=== PATIENT | male | born 1985 | race African-American/Black ===

== ENCOUNTER 2019-11-29 09:11 | Outpatient (REF) | payer OTHER, SELFPAY ==
[2019-11-29 10:19] LABS: Alanine Aminotransferase 24 U/L (0-40); Albumin Level 4.3 g/dL (3.5-5.0); Alkaline Phosphatase 74 U/L (39-117); Anion Gap 11 (12-20); Aspartate Amino Transferase 26 U/L (5-37); Bilirubin Total 0.5 mg/dL (0.0-1.0); Blood Urea Nitrogen 14 mg/dL (9-16); Carbon Dioxide 26 mmol/L (22-29); Chloride 105 mmol/L (96-108); Estimated Glomerular Filt Rate > 60; Glucose Random 95 mg/dL (60-115); Potassium 4.7 mmol/l (3.3-5.1); Sodium 137 mmol/L (135-145); Total Protein 7.8 g/dL (6.5-8.0)
[2019-11-29 10:20] LABS: Calcium 9.4 mg/dL (8.4-10.2); Lithium < 0.10 mmol/L (0.60-1.20)
== END 2019-11-29 09:12 | disposition home or self-care (01) ==
LOC: HO.LAB 09:11
PROVIDERS: PCP Internal Medicine; Visit Provider Psychiatry & Neurology Neurology
DX: G44.009 Cluster headache syndrome, unspecified, not intractable (principal); Z79.899 Other long term (current) drug therapy
CPT/HCPCS: 80053; 80178

== ENCOUNTER 2020-03-09 09:24 | Outpatient (REF) | payer OTHER, SELFPAY ==
--- NOTE | 2020-03-09 10:03 | XR_ITS ---
EXAMINATION: XR ANKLE, RIGHT XR ANKLE, LEFT CLINICAL INFORMATION: Right ankle radiographs dated 02/18/2017 COMPARISON: None TECHNIQUE: AP, mortise, and lateral views of the right and left ankle. FINDINGS: Right ankle: No acute fracture or dislocation. The ankle mortise is maintained. No joint space narrowing or marginal osteophytes. No osseous erosion. Tiny dorsal calcaneal enthesophytes. Left ankle: No acute fracture or dislocation. The ankle mortise is maintained. No joint space narrowing or marginal osteophytes. No osseous erosion. Small dorsal calcaneal enthesophyte. XR/XR ankle RT min 3V IMPRESSION: Right ankle: No acute osseous abnormality. Dorsal calcaneal spurs. Left ankle: No acute osseous abnormality. Dorsal calcaneal spurs.
--- NOTE | 2020-03-09 10:03 | XR_ITS ---
EXAMINATION: XR KNEE, RIGHT XR KNEE, LEFT CLINICAL INFORMATION: Pain. COMPARISON: None. TECHNIQUE: AP, tunnel, lateral, and sunrise views of the right and left knee. FINDINGS: Right knee: No acute fracture or dislocation. No joint space narrowing or marginal osteophytes. No osseous erosion. No abnormal soft tissue calcification. No significant joint effusion. Left knee: No acute fracture or dislocation. No joint space narrowing or marginal osteophytes. No osseous erosion. Corticated ossification at the tibial plateau within the distal patellar tendon measuring 2.8 cm, consistent with a chronic avulsive injury (chronic [place]-Schlatter's disease). No significant joint effusion. XR/XR knee LT 4V IMPRESSION: Right knee: Unremarkable examination. Left knee: No acute osseous abnormality. Corticated ossification within the distal patellar tendon, consistent with a chronic avulsive injury (chronic [place]-Schlatter's disease).
--- NOTE | 2020-03-09 10:03 | XR_ITS ---
EXAMINATION: XR KNEE, RIGHT XR KNEE, LEFT CLINICAL INFORMATION: Pain. COMPARISON: None. TECHNIQUE: AP, tunnel, lateral, and sunrise views of the right and left knee. FINDINGS: Right knee: No acute fracture or dislocation. No joint space narrowing or marginal osteophytes. No osseous erosion. No abnormal soft tissue calcification. No significant joint effusion. Left knee: No acute fracture or dislocation. No joint space narrowing or marginal osteophytes. No osseous erosion. Corticated ossification at the tibial plateau within the distal patellar tendon measuring 2.8 cm, consistent with a chronic avulsive injury (chronic [place]-Schlatter's disease). No significant joint effusion. XR/XR knee RT 4V IMPRESSION: Right knee: Unremarkable examination. Left knee: No acute osseous abnormality. Corticated ossification within the distal patellar tendon, consistent with a chronic avulsive injury (chronic [place]-Schlatter's disease).
--- NOTE | 2020-03-09 10:03 | XR_ITS ---
EXAMINATION: XR ANKLE, RIGHT XR ANKLE, LEFT CLINICAL INFORMATION: Right ankle radiographs dated 02/18/2017 COMPARISON: None TECHNIQUE: AP, mortise, and lateral views of the right and left ankle. FINDINGS: Right ankle: No acute fracture or dislocation. The ankle mortise is maintained. No joint space narrowing or marginal osteophytes. No osseous erosion. Tiny dorsal calcaneal enthesophytes. Left ankle: No acute fracture or dislocation. The ankle mortise is maintained. No joint space narrowing or marginal osteophytes. No osseous erosion. Small dorsal calcaneal enthesophyte. XR/XR ankle LT min 3V IMPRESSION: Right ankle: No acute osseous abnormality. Dorsal calcaneal spurs. Left ankle: No acute osseous abnormality. Dorsal calcaneal spurs.
[2020-03-09 10:16] LABS: MANUAL DIFF FLAG NO
[2020-03-09 10:24] LABS: Basophils Percent Auto 0.4 % (0-2); Eosinophils Absolute Auto 0.2 X10*3/uL (0.0-0.4); Eosinophils Percent Auto 2.5 % (0-4); Hematocrit 41.5 % (42-52); Hemoglobin 13.2 g/dl (14.0-18.0); Imm Gran Abs Auto 0.01 X10*3/uL (0.00-0.03); Imm Gran Pct Auto 0.1 % (0.0-0.4); Lymphocytes Absolute Auto 3.4 X10*3/uL (1.2-4.9); Lymphocytes Percent Auto 43.9 % (20-40); Mean Corpuscular HGB Conc 31.8 g/dl (31.0-36.0); Mean Corpuscular Hemoglobin 27.4 pg (27.0-33.0); Mean Corpuscular Volume 86.1 fL (80-98); Mean Platelet Volume 9.7 fL (9.4-12.4); Monocytes Absolute Auto 0.5 X10*3/uL (0.1-1.2); Monocytes Percent Auto 5.9 % (2-11); Neutrophils Absolute Auto 3.7 X10*3/uL (2.0-8.3); Neutrophils Percent Auto 47.2 % (45-73); Platelet Count 332 X10*3/uL (160-400); Red Blood Count 4.82 X10*6/uL (4.60-5.80); Red Cell Distribution Width 12.4 % (11.0-16.0); White Blood Count 7.7 X10*3/uL (4.8-10.8)
[2020-03-09 10:51] LABS: C Reactive Protein 0.31 mg/dL (< or = 0.50); Rheumatoid Factor < 15.0 IU/mL (<15.0)
[2020-03-10 13:02] LABS: Lyme Abs Screen <0.90 index
[2020-03-11 20:52] LABS: Anti Nuclear Antibody Screen NEGATIVE (NEGATIVE)
== END 2020-03-09 09:25 | disposition home or self-care (01) ==
LOC: HO.LAB 09:24
PROVIDERS: Visit Provider Internal Medicine
DX: M25.561 Pain in right knee (principal); M25.562 Pain in left knee; M25.571 Pain in right ankle and joints of right foot; M25.572 Pain in left ankle and joints of left foot
CPT/HCPCS: 36415; 73564; 73610; 85025; 86038; 86039; 86140; 86431; 86618

== ENCOUNTER 2020-03-31 10:37 | Outpatient (REF) | payer OTHER, SELFPAY ==
[2020-04-03 12:26] LABS: Absolute CD3 Count 2053 cells/uL (840-3060); Absolute CD4 Count 728 cells/uL (490-1740); Absolute CD8 Count 1351 cells/uL (180-1170); Absolute Lymphocytes 2723 cells/uL (850-3900); CD4 CD8 Ratio 0.54 (0.86-5.00); Percent CD3 Cells 75 % (57-85); Percent CD4 Cells 27 % (30-61); Percent CD8 Cells 50 % (12-42)
[2020-04-04 11:56] LABS: HIV RNA PCR Qn Copies <20 NOT DETECTED copies/mL (NOT DETECTED); HIV RNA PCR Qn Log Copies <1.30 NOT DETECTED (NOT DETECTED)
== END 2020-03-31 10:38 | disposition home or self-care (01) ==
LOC: HO.LAB 10:37
PROVIDERS: Visit Provider Internal Medicine
DX: B20 Human immunodeficiency virus [HIV] disease (principal)
CPT/HCPCS: 36415; 86359; 86360; 87536

== ENCOUNTER 2020-07-31 14:24 | Outpatient (REF) | payer OTHER, SELFPAY ==
[2020-07-31 15:24] LABS: Blood Urea Nitrogen 14 mg/dL (9-16); Estimated Glomerular Filt Rate 52
== END 2020-07-31 14:25 | disposition home or self-care (01) ==
LOC: HO.LAB 14:24
PROVIDERS: Visit Provider Psychiatry & Neurology Neurology
DX: G93.40 Encephalopathy, unspecified (principal); G44.009 Cluster headache syndrome, unspecified, not intractable
CPT/HCPCS: 36415; 82565; 84520

== ENCOUNTER 2020-08-30 15:15 | Outpatient (REF) | payer OTHER, SELFPAY ==
--- NOTE | ~2020-08-30 | MR_ITS ---
EXAMINATION: MR BRAIN WITHOUT AND WITH CONTRAST CLINICAL INFORMATION: Encephalopathy and chronic daily headaches. COMPARISON: MRI scan of the brain 11/13/2012. TECHNIQUE: Multiplanar, multisequence MRI of the brain was obtained before and after the intravenous administration of 10 mL Gadavist. FINDINGS: No diffusion abnormalities are identified to suggest an acute or subacute infarct. No mass effect or midline shift is seen. The ventricles are normal in size. There are a few small foci of increased T2/FLAIR signal in the periventricular white matter which are nonspecific. No extra-axial fluid collections are seen. The brainstem appears normal. On postcontrast imaging, there is no abnormal parenchymal or leptomeningeal enhancement. No pathologic magnetic susceptibility artifact is identified on the gradient refocused acquisition. The cerebellar tonsils extend 3 mm below the level of foramen magnum, within normal limits for patient's age and unchanged compared to prior imaging. The contour of the tonsils is normal. Marrow signal is normal. There is a partially empty sella, which is unchanged. The major intracranial flow-voids at the level of the upper [place] of [place] are preserved. The dural venous sinus flow-voids are maintained. The mastoid air cells are well-aerated. There is moderate mucoperiosteal thickening in the bilateral maxillary sinuses on the current study. The nasal septum is deviated to the left and there is a left-sided bony nasal septal spur. There is minimal left ethmoid sinus opacification. MR/MR head/brain wo/w con IMPRESSION: 1. There are no acute bleeds or territorial infarcts. There are no masses or areas of abnormal enhancement. 2. There is mucoperiosteal thickening in the bilateral maxillary and left ethmoid sinuses.
== END 2020-08-30 15:16 | disposition home or self-care (01) ==
LOC: HO.MRI 15:15
PROVIDERS: Visit Provider Psychiatry & Neurology Neurology
DX: G93.40 Encephalopathy, unspecified (principal); R51.9 Headache, unspecified
CPT/HCPCS: 70553; A9585

== ENCOUNTER 2023-05-01 11:27 | Outpatient (REF) | payer OTHER, SELFPAY ==
[2023-05-01 16:02] LABS: MANUAL DIFF FLAG NO
[2023-05-01 16:14] LABS: Basophils Percent Auto 0.3 % (0-2); Eosinophils Absolute Auto 0.4 X10*3/uL (0.0-0.4); Eosinophils Percent Auto 4.6 % (0-4); Hemoglobin 12.8 g/dl (14.0-18.0); Imm Gran Abs Auto 0.02 X10*3/uL (0.00-0.03); Imm Gran Pct Auto 0.2 % (0.0-0.4); Lymphocytes Absolute Auto 3.7 X10*3/uL (1.2-4.9); Lymphocytes Percent Auto 40.4 % (20-40); Mean Corpuscular Hemoglobin 27.6 pg (27.0-33.0); Mean Corpuscular Volume 86.4 fL (80.0-98.0); Mean Platelet Volume 9.6 fL (9.4-12.4); Monocytes Absolute Auto 0.5 X10*3/uL (0.1-1.2); Monocytes Percent Auto 5.1 % (2-11); Neutrophils Absolute Auto 4.5 x10*3/uL (2.0-8.3); Neutrophils Percent Auto 49.4 % (45-73); Platelet Count 285 X10*3/uL (160-400); Red Blood Count 4.63 X10*6/uL (4.60-5.80); Red Cell Distribution Width 13.2 % (11.0-16.0); White Blood Count 9.2 X10*3/uL (4.8-10.8)
[2023-05-01 16:24] LABS: Alanine Aminotransferase 38 U/L (0-40); Alkaline Phosphatase 62 U/L (39-117); Anion Gap 14 (12-20); Aspartate Amino Transferase 28 U/L (5-37); Bilirubin Total 0.2 mg/dL (0.0-1.0); Blood Urea Nitrogen 21 mg/dL (9-16); Calcium 8.9 mg/dL (8.4-10.2); Carbon Dioxide 26 mmol/L (22-29); Chloride 104 mmol/L (96-108); Estimated Glomerular Filt Rate > 60; Glucose Random 95 mg/dL (60-115); Sodium 140 mmol/L (135-145)
[2023-05-02 13:23] LABS: Absolute CD3 Count 3044 cells/uL (840-3060); Absolute CD4 Count 1044 cells/uL (490-1740); Absolute CD8 Count 1945 cells/uL (180-1170); Absolute Lymphocytes 3977 cells/uL (850-3900); CD4 CD8 Ratio 0.54 (0.86-5.00); Percent CD3 Cells 77 % (57-85); Percent CD4 Cells 26 % (30-61); Percent CD8 Cells 49 % (12-42)
[2023-05-03 20:44] LABS: HIV RNA PCR Qn Copies 238 copies/mL (NOT DETECTED); HIV RNA PCR Qn Log Copies 2.38 (NOT DETECTED)
== END 2023-05-01 11:28 | disposition home or self-care (01) ==
LOC: HO.HHCL 11:27
PROVIDERS: Visit Provider Internal Medicine
DX: B20 Human immunodeficiency virus [HIV] disease (principal)
CPT/HCPCS: 36415; 80053; 85025; 86359; 86360; 87536

== ENCOUNTER 2023-06-25 08:57 | Outpatient (REF) | payer OTHER, SELFPAY ==
[2023-06-25 09:13] LABS: MANUAL DIFF FLAG NO
[2023-06-25 10:01] LABS: Basophils Percent Auto 0.6 % (0-2); Eosinophils Absolute Auto 0.4 X10*3/uL (0.0-0.4); Eosinophils Percent Auto 5.9 % (0-4); Hematocrit 40.1 % (42.0-52.0); Hemoglobin 13.1 g/dl (14.0-18.0); Imm Gran Abs Auto 0.02 X10*3/uL (0.00-0.03); Imm Gran Pct Auto 0.3 % (0.0-0.4); Lymphocytes Absolute Auto 2.7 X10*3/uL (1.2-4.9); Lymphocytes Percent Auto 39.2 % (20-40); Mean Corpuscular HGB Conc 32.7 g/dl (31.0-36.0); Mean Corpuscular Hemoglobin 28.2 pg (27.0-33.0); Mean Corpuscular Volume 86.4 fL (80.0-98.0); Mean Platelet Volume 9.7 fL (9.4-12.4); Monocytes Absolute Auto 0.5 X10*3/uL (0.1-1.2); Monocytes Percent Auto 6.5 % (2-11); Neutrophils Absolute Auto 3.3 x10*3/uL (2.0-8.3); Neutrophils Percent Auto 47.5 % (45-73); Platelet Count 309 X10*3/uL (160-400); Red Blood Count 4.64 X10*6/uL (4.60-5.80); Red Cell Distribution Width 12.9 % (11.0-16.0); White Blood Count 6.9 X10*3/uL (4.8-10.8)
[2023-06-25 10:31] LABS: Lithium < 0.10 mmol/L (0.60-1.20)
[2023-06-25 10:40] LABS: Alanine Aminotransferase 23 U/L (0-40); Albumin Level 4.3 g/dL (3.5-5.0); Alkaline Phosphatase 60 U/L (39-117); Anion Gap 13 (12-20); Aspartate Amino Transferase 23 U/L (5-37); Bilirubin Direct < 0.2 mg/dL (0.0-0.5); Bilirubin Total 0.2 mg/dL (0.0-1.0); Blood Urea Nitrogen 16 mg/dL (9-16); Calcium 9.6 mg/dL (8.4-10.2); Carbon Dioxide 25 mmol/L (22-29); Chloride 105 mmol/L (96-108); Estimated Glomerular Filt Rate 59; Glucose Random 80 mg/dL (60-115); Potassium 4.4 mmol/L (3.3-5.1); Sodium 139 mmol/L (135-145); Total Protein 8.3 g/dL (6.5-8.0)
[2023-06-25 10:53] LABS: HBS Num1 > 1000.00 mIU/mL (0-7.99); HBc Num1 4.04 S/CO (0.00-0.79); HBsAGNum1 0.26 S/CO (0.00-0.99); Hepatitis B Surface Antigen Negative (Negative); ~Hepatitis B Surface Antibody REACTIVE (Nonreactive); ~Hepatitis C Antibody Nonreactive (Nonreactive)
[2023-06-25 11:01] LABS: Thyroid Stimulating Hormone 0.61 uIU/mL (0.32-4.0)
[2023-06-25 11:25] LABS: Hepatitis A Antibody IgM 0.11 Index (0-0.79); ~Hepatitis A Antibody IgM Nonreactive (Nonreactive)
[2023-06-25 12:07] LABS: HBc Num2 3.93 S/CO; Hepatitis B Core Antibody Reactive (Nonreactive)
[2023-06-25 12:08] LABS: HIV AB/AG Reactive (Nonreactive)
[2023-06-26 12:09] LABS: Hepatitis B Core Antibody IgM NON-REACTIVE (NON-REACTIVE)
[2023-06-30 12:37] LABS: HIV 1 Antibody POSITIVE (Abnormal)
[2023-06-30 12:38] LABS: HIV 2 Antibody NEGATIVE
== END 2023-06-25 08:58 | disposition home or self-care (01) ==
LOC: HO.LAB 08:57
PROVIDERS: PCP Internal Medicine; Visit Provider Physician Assistant Medical
DX: F10.21 Alcohol dependence, in remission (principal); Z79.899 Other long term (current) drug therapy
CPT/HCPCS: 36415; 80053; 80178; 82248; 84443; 85025; 86701; 86702; 86704; 86705; 86706; 86709; 86803; 87340; 87389

== ENCOUNTER 2023-07-06 15:25 | Emergency (ER) | payer OTHER, SELFPAY ==
--- NOTE | 2023-07-06 15:35 | ED.GENADULT ---
HPI - General Adult General Chief complaint: Medical Clearance Stated complaint: medical clearance for work History of Present Illness HPI narrative: left without completing treatment Related Data Allergies Allergy/AdvReac Type Severity Reaction Status Date / Time shellfish derived Allergy Severe ANAPHYLAXIS Unverified 07/06/23 15:40 [SHELLFISH DERIVED] oxycodone [From PERCOCET] AdvReac Intermediate ITCHINESS Unverified 07/06/23 15:40 PMFSH Social History Social History Advance Directives: No Advance Directives Information Provided: No Physical Exam ED Vital Signs: BMI result Body Mass Index 31.3 Course Course Course Narrative: This is an RME performed by Corey Wakefield CNP: Additional HPI, ROS, PE not included below will be deferred to primary provider. Patient is a 38-year-old male who presents to the emergency department, Reports he was recently in a residential [facility] program at [address] [place] [address] in [place] [address] , but left on voluntarily, he states he was not well, his [place] levels were unstable, and he needs medical clearance to get back there. Denies drug or alcohol usage. Denies SI/HI. Reports increased depression. Denies physical complaints Plan: Labs, care team evaluation Discharge Plan Discharge Clinical Impression: Encounter for medical clearance for patient hold Patient Disposition: Left W/O Completing Treatment Discharge Date/Time: 07/06/23 20:07
[2023-07-06 15:36] VITALS: BP 141/86; PULSE 99; RESP 18; TEMP 36.7; O2SAT 99; BMI 31.3
--- NOTE | 2023-07-06 16:16 | MHC.EDTECH ---
No answer for lab work at 1616
--- OUTSIDE RECORDS SUMMARY | 2023-07-06 16:31 | XMS_ITS | Continuity of Care Document ---
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 k/mm3???Neut % - 63.4 %???Lymph % - 26.4 %???Dixon % - 6.6 %???Eos % - 3.1 %???Baso % - 0.3 %???Imm Gran- 0.2 %???Abs. Imm Gran - 0.0 k/mm3 Cocaine Urine Screen (01/03/2023) ???Cocaine Metabolite Screen, Urine - POSITIVE Comprehensive Metabolic Panel (01/02/2023) ???Sodium - 134 mmol/L???Potassium - 4.1 mmol/L???Chloride - 101 mmol/L???Bicarbonate Level - 26 mmol/L???Anion Gap - 7???Glucose Level - 83 mg/dL???BUN - 9 mg/dL???Creatinine-Blood - 1.0 mg/dL???Estimated GFR Creatinine - 103 ML/MIN/1.73 M2???Calcium - 9.1 mg/dL???Protein, Total - 7.3 Gm/dL???Album in - 3.9 Gm/dL???AG Ratio - 1.1???Alkaline Phosphatase - 73 units/L???AST (SGOT) - 16 units/L???ALT(SGPT) - 13 units/L???Bilirubin, Total - 0.5 mg/dL COVID-19, RSV, and Flu A/B, Rapid PCR (01/02/2023) ???Influenza A PCR - NEGATIVE???Influenza B PCR - NEGATIVE???RSV PCR - NEGATIVE???COVID-19 PCR Specimen Source - NASAL???COVID-19 PCR Result - NEGATIVE FOLIC ACID (01/02/2023) ???Folic Acid Level - 14.7 ng/mL FREE T4 (01/02/2023) ???Free T4 - 1.21 ng/dL [place] Level (01/04/2023) ???[place] Level - 0.4 mmol/L Mg Level (01/04/2023) ???Magnesium - 1.7 mg/dL Opiate Screen Urine (01/03/2023) ???Opiate Screen, Urine - NONE DETECTED SALICYLATE (01/02/2023) ? ?Salicylate Level - <0.3 mg/dL TSH with T4 Reflex (Adults Only) (01/02/2023) ???TSH - 0.27 uIU/mL VITAMIN B12 (01/02/2023) ???Vitamin B12 Level - 585 pg/mL Immunizations This Visit Not Given Vaccine Commentsinfluenza virus vaccine, inactivated Patient Refuses Allergies (NKA means No Known Allergies) shellfish??(throat swells up swelling eyes face) Problems Active Problems??(7) Asthma?? Cocaine abuse?? Difficulty controlling anger?? HIV disease?? 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 Opioid abuse?? Pilonidal disease?? Education Materials Below is the list of Educational Leaflet Providered with your Discharge Instructions. Valuables and Belongings I fully understand and agree that [facility] accepts no responsibility for all my personal property including clothing, toilet articles, radios, jewelry, dentures, hearing aids, rings, money, or any other property that is in my possession or is brought to me after admission. I understand certain valuables may be placed in a hospital safe for a short period of time. I understand that the hospital is not liable for loss or damage due to accident, fire, or other natural occurrence while said property is in the safe. I accept full responsibility for any personal property that I keep with me, and will not hold the hospital responsible in case of loss or disappearance. I acknowledge that i have been encouraged to send valuables and belongings home. ?? Date for Pt to Sign Valuables/Belongings: 01/03/23 11:43:00 ?? Other Discharge Information ? Pulmonary Rehab Status?? Pulmonary Rehab Discharge Status?? Respiratory Rate: 18 br/min ? Common Emergency Awareness Tips IS IT A STROKE? Act FAST and Check for these signs: FACE Does the face look uneven? ARM Does one arm drift down? SPEECH Does their speech sound strange? TIME Call at any sign of stroke ?? Heart Attack Signs Chest discomfort: Most heart attacks involve discomfort in the center of the chest and lasts more than a few minutes, or goes away and comes back. It can feel like uncomfortable pressure, squeezing, fullness or pain. Discomfort in upper body: Symptoms can include pain or discomfort in one or both arms, back, neck, jaw or stomach. Shortness of breath: With or without discomfort. Other signs: Breaking out in a cold sweat, nausea, or lightheaded. Remember, MINUTES DO MATTER. If you experience any of these heart attack warning signs, call to get immediate medical attention! ?? Smoking can increase your chances of developing chronic health problems and can cause harmful effects to other family members in your house. If you smoke, you are strongly encouraged to quit. Please call [facility] [employer] Link at [phone] or [phone] ([phone]) or log in to [email or web address] for referrals to smoking cessation programs. ?? 659 Suicide & Crisis Lifeline is available 09/09 if you or someone you know needs to find a reason to keep living. By calling 086 you'll be connected to a skilled, trained counselor at a crisis center in your area. INPATIENT DISCHARGE INSTRUCTIONS SIGNATURE ONEL SLADE Location:[facility] Registration Date and Time:01/02/2023 10:38 EST Primary Care Physician: Pravin SAHU, Juan Ortega, Attending Physician: Moises Corley DO, ONEL GARCIA, have received the above patient education materials/instructions and have verbalized understanding. If ambulance or transport services are being used I further acknowledge being given a choice of service. ?? If you need to contact me, please call me at this number: . Patient/Financial Accounting Analyst Name: Patient/Financial Accounting Analyst Signature: Relationship to Patient: Witness Name/Signature: Date: Patient Care team information Care Team Personnel Name: Pravin SAHU, Juan Ortega Position: [facility] Outreach Member Role: PCP Address: Address: [address] [place] [address] Name: Kilo Cm RN Position: [facility] RN Member Role: Primary Care Nurse Name: Duy VILLA Attending Position: [facility] ED Medicine Name: Radha Orozco RN Position: [facility] ED RN W/OE and Tasks Member Role: Patient Care Provider Name: Jaye Oquendo RN Position: [facility] ED RN W/OE and Tasks Member Role: Patient Care Provider Name: Ena Santa Position: [facility] ED TA [facility] Member Role: Patient Care Provider Name: Tatyana Yadav Position: [facility] ED OA Charge Member Role: ED Rental Counter Clerk Care Team Related Persons Name: JAME GILBERT Address: home [address] [address] Name: AMCKENZIE MENDIOLA Address: home [address] [place] [address]
--- OUTSIDE RECORDS SUMMARY | 2023-07-06 16:31 | XMS_ITS | Continuity of Care Document ---
Author Organization [facility] Address [address] [place] [address]- Care Team Providers Care Physician Obstetrician Name Role Phone Pravin SAHU, Juan Ortega Primary Care Physi [employer] [facility] 10/02/19 [facility] [address] [place] [address]- [facility] Encounter Diagnosis Vomiting(Discharge Diagnosis) - 09/25/19 Attending Physician: Lynn SAHU, Titus Garcia Referring Physician: Pravin SAHU, Juan Ortega Allergies, Adverse Reactions, Alerts Substance Reaction Severity Status shellfish throat swells up swelling eyes face Active Immunizations Given and Recorded Vaccine Date Status Refusal Reason influ virus vac, H1N1, live(oldterm) 1 12/02/08 [...] diphtheria/tetanus/pertussis, acel(DTaP) 87 Given Poliovirus Vaccine, Inactivated 5/24/93 Given Poliovirus Vaccine, Inactivated 02/14/89 Given Poliovirus Vaccine, Inactivated 87 Given Poliovirus Vaccine, Inactivated 87 Given Haemophilus B Conjugate Vac (oldterm) 02/14/89 Giv en 1Admin Note: VIS GIVEN - 11/18/08 [facility] - [facility] Medications albuterol CFC free 90 mcg/inh inhalation aerosol 1, puffs, Inhalation, Once, PRN, # 18 Gm, Refills 0, Tot. Refills 0, Soft Stop, 03/18/19 19:32:00 EST, Aerosol, Print Requisition, 188, cm, 03/18/19 17:09:00 EST, Height, 114, kg, 03/18/19 17:09:00 EST, Dry Weight Start Date: 03/18/19 Status: Ordered Biktarvy oral tablet TK 1 T PO QD Start Date: 03/18/19 Status: Ordered clonazePAM 0.5 mg oral tablet TK 1 T PO QHS Start Date: 03/18/19 Status: Ordered Colace sodium 100 mg oral capsule 100 mg, 1, capsule, By Mouth, 2 times a day, PRN, # 60 capsule, Refills 3, Tot. Refills 3, Maintenance, for constipation, 01/20/19 9:53:00 EST, Route to Pharmacy Electronically, [id number], [facility] #[id number], 184, c... Start Date: 01/20/19 Status: Ordered Flovent HFA 220 mcg/inh inhalation aerosol with adapter 1 puffs, Inhalation, 2 times a day, 5 Refills, Maintenance, 30, days, Aerosol Start Date: 08/23/10 Stop Date: 02/19/11 Status: Ordered lithium 300 mg oral tablet, extended release 1 tablet = 300 mg, By Mouth, 3 times a day, 0 Refills, Maintenance, 04/24/15 12:07:59 EST Start Date: 04/24/15 Status: Ordered mirtazapine 15 mg oral tablet TK 1 T PO QHS Start Date: 03/18/19 Status: Ordered ProAir HFA 90 mcg/inh inhalation aerosol with adapter 2, puffs, Inhalation, Every 4 hours, PRN, # 8.5 Gm, Refills 0, Tot. Refills 0, Maintenance, 01/20/19 10:15:00 EST, Aerosol, Route to Pharmacy Electronically, [id number], [facility] #[id number], 184, cm, 01/20/19 8:19:37... Start Date: 01/20/19 Status: Ordered Singulair 10 mg oral tablet 1 tablet = 10 mg, By Mouth, Daily, # 30 tablet, 5 Refills, Maintenance Start Date: 08/23/10 Stop Date: 02/19/11 Status: Ordered Sumatriptan = 100 mg, By Mouth, PRN as needed for migraine headache, 0 Refills, Maintenance, 01/11/19 20:17:34 EST Start Date: 01/11/19 Status: Ordered Valium 5 mg oral tablet 5 mg, 1, tablet, By Mouth, 3 times a day, PRN, # 40 tablet, Refills 0, Tot. Refills 0, Maintenance,Anal Spasm, 01/20/19 9:53:00 EST, Route to Pharmacy Electronically, [id number], [facility] #[id number], 184, cm, ... 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
--- OUTSIDE RECORDS SUMMARY | 2023-07-06 16:32 | XMS_ITS | Continuity of Care Document ---
Author Organization [facility] Address [address] [address]- Care Team Providers Care Vp Of Digital Marketing Name Role Phone Pravin SAHU, Juan Ortega Primary Care Physi gianni [facility]): 03/11/19 - 05/12/19 [facility] [address] [place] [address] Attending Physician: Eddie Pak MD Admitting Physician: Eddie Pak MD Referring Physician: Jason Berg MD Allergies, Adverse Reactions, Alerts Substance Reaction [...] 01/20/19 9:53:00 EST, Route to Pharmacy Electronically, [id number], [facility] #[id number], 184, c... Start Date: 01/20/19 Status: Ordered [...] 10:15:00 EST, Aerosol, Route to Pharmacy Electronically, [id number], [facility] #[id number], 184, cm, 01/20/19 8:19:37... Start Date: 01/20/19 [...] 01/20/19 9:53:00 EST, Route to Pharmacy Electronically, [id number], [facility] #[id number], 184, cm, ... 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
--- OUTSIDE RECORDS SUMMARY | 2023-07-06 16:32 | XMS_ITS | Continuity of Care Document ---
Author Organization [facility] ter Address [address] [place] [address]- Care Team Providers Care Counter Person Name Role Phone Pravin SAHU, Juan Ortega Primary Care Physi gianni [facility] - 09/07/[address] [address]- Discharge Disposition: A-D/C Home Attending Physician: Jason Arauz MD Admitting Physician: Jason Arauz MD Referring Physician: Not on Staff, Referring MD Allergies, Adverse Reactions, Alerts Substance Reaction Severity Status shellfish throat swells up swelling eyes face Active Immunizations Given and Recorded Vaccine Date Status Refusal Reason tetanus/diphtheria/pertussis, acel(Tdap) 08/31/21 Given influ virus vac, H1N1, live(oldterm) 1 12/02/08 [...] en 1Admin Note: VIS GIVEN - 11/18/08 [facility] Medications albuterol CFC free 90 mcg/inh inhalation aerosol 1, puffs, Inhalation, Once, PRN, # 18 Gm, Refills 0, Tot. Refills 0, Soft Stop, 03/18/19 19:32:00 EST, Aerosol, Print Requisition, 188, cm, 03/18/19 17:09:00 EST, Height, 114, kg, 03/18/19 17:09:00 EST, Dry Weight Start Date: 03/18/19 Status: Ordered ARIPiprazole 5 mg oral tablet 5 mg, 1, tablet, By Mouth, Daily, # 30 tablet, Refills 0, Tot. Refills 0, Maintenance, 05/17/20 13:49:00 EDT, Route to Pharmacy Electronically, [facility] #[id number], Partial fill upon patient request if the prescription is for a schedule II opi... Start Date: 05/17/20 Stop Date: 06/16/20 Status: Ordered Biktarvy oral tablet 1 tablet, By Mouth, Daily Start Date: 03/18/19 Status: Ordered mirtazapine 15 mg oral tablet 1 tablet = 15 mg, By Mouth, Daily at bedtime, # 30 tablet, 0 Refills, Maintenance, 05/15/20 14:01:00 EDT, Tablet, [facility] #[id number], Partial fill upon patient request if the prescription isfor a schedule II opioid drug., 187, cm, 05/03/20 1... 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)(Confirmed) Active Pilonidal disease(Confirmed) Active Vital Signs Most recent to oldest [Reference Range]: 1 Oxygen Saturation [94-100 %] 96 % (09/07/21 9:05 PM) Pulse Rate [55-90 bpm] 94 bpm *H* (09/07/21 9:05 PM) Blood Pressure [90-138/55-84 mm Hg] 132/ 72mm Hg (09/07/21 9:05 PM) Respiratory Rate [16-30 br/min] 16 br/mi n (09/07/21 9:05 PM) Temperature [96.8-100.4 DegF] 98.5 DegF (09/07/21 9:05 PM) Mode of Delivery (Oxygen) Room air (09/07/21 9:05 PM) Blood pressure sites Arm, right (09/07/21 9:05 PM) Temperature Route Oral (09/07/21 9:05 PM) Social History Social History Type Response Smoking Status Never smoker entered on: 03/12/17 Sex
--- OUTSIDE RECORDS SUMMARY | 2023-07-06 16:32 | XMS_ITS | Continuity of Care Document ---
Author Organization [facility] Address [address] [address]- Care Team Providers Care Customer Care Consultant Name Role Phone Pravin SAHU, Juan Ortega Primary Care Physi gianni [facility] - 04/26/19 [facility] [address] [address]- [facility] Attending Physician: Sunny De Leon Admitting Physician: Sunny De Leon Referring Physician: AdmSunny rodríguez Allergies, Adverse Reactions, Alerts Substance Reaction Severity [...] 01/20/19 9:53:00 EST, Route to Pharmacy Electronically, [id number], [facility] #[id number], 184, c... Start Date: 01/20/19 Status: Ordered [...] 10:15:00 EST, Aerosol, Route to Pharmacy Electronically, [id number], [facility] #[id number], 184, cm, 01/20/19 8:19:37... Start Date: 01/20/19 [...] 01/20/19 9:53:00 EST, Route to Pharmacy Electronically, [id number], [facility] #[id number], 184, cm, ... Start Date: 01/20/19 Status: [...]
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
--- OUTSIDE RECORDS SUMMARY | 2023-07-06 16:32 | XMS_ITS | Continuity of Care Document ---
Author Organization [facility] ter Address [address] [place] [address]- Care Team Providers Care Windrower Operator Name Role Phone Pravin SAHU, Juan Ortega Primary Care Physi gianni [facility]s): 04/15/21 - 04/15/[address] [address]- Encounter Diagnosis Acute gastritis(Final) - 04/15/21 Acute nausea with nonbilious vomiting(Final) - 04/15/21 Discharge Disposition: A-D/C Home Attending Physician: Henry Zhao MD Admitting Physician: Henry Zhao MD Referring Physician: Not on Staff, Referring [...] en 1Admin Note: VIS GIVEN - 11/18/08 [facility] Medications albuterol CFC free 90 mcg/inh inhalation [...] 05/17/20 13:49:00 EDT, Route to Pharmacy Electronically, [facility] #[id number], Partial fill upon patient request if the prescription is for a schedule II opi... Start Date: 05/17/20 Stop Date: 06/16/20 Status: Ordered Biktarvy oral tablet 1 tablet, By Mouth, Daily Start Date: 03/18/19 Status: Ordered mirtazapine 15 mg oral tablet 1 tablet = 15 mg, By Mouth, Daily at bedtime, # 30 tablet, 0 Refills, Maintenance, 05/15/20 14:01:00 EDT, Tablet, [facility] #[id number], Partial fill upon patient request if the prescription isfor a schedule II opioid drug., 187, cm, 05/03/20 1... Start Date: 05/15/20 Stop Date: 06/14/20 Status: Ordered ondansetron 4 mg oral tablet, disintegrating 1 tablet = 4 mg, By Mouth, Every 8 hours, PRN Nausea & Vomiting, for 3 days, # 10 tablet, 0 Refills, Acute 04/18/21 20:29:00 EST, 04/15/21 20:29:00 EST, Tablet, [facility] #[id number], Partial fill upon patient request if the prescription is for... Start Date: 04/15/21 Stop Date: 04/18/21 Status: Ordered Singulair 10 mg oral tablet [...] Exam Date Time Procedure Performing Provider Status 04/15/21 6:44 PM Chest 2 Views Frontal and Lat Suzy Irving; Auth (Verified) Notes: (Chest 2 Views Frontal and Lat) Reason For Exam: Abdominal Pain RESULT: Chest 2 Views Frontal and Lat Chest 2 Views Frontal and Lat Hx of Present Illness: The patient complains of 5 days of vomiting and abdominal pain. COMPARISON: 02/16/2021. FINDINGS: LINES AND TUBES: None. LUNGS AND PLEURA: Clear lungs. Normal pulmonary vascularity. No pleural effusion. No pneumothorax. HEART, MEDIASTINUM AND ALESIA: Heart is normal in size. Normal upper mediastinal and hilar contour. BONES AND SOFT TISSUES: No acute abnormality. IMPRESSION: No acute abnormality. WSN: [id number] Ordering Physician: Henry Zhao Dictated By: Anshul Carballo MD Dictated Date/Time: 04/15/21 6:55 pm Reviewed By: Anshul Carballo MD Signed By: Anshul Carballo MD Signed Date/Time: 04/15/21 6:55 pm Transcribed By: ALEXANDER Transcribed Date/Time: 04/15/21 6:54 pm Vital Signs Most recent to oldest [Reference Range]: 1 2 3 Oxygen Saturation [94-100 %] 100 % (04/15/21 5:21 PM) 100 % (04/15/21 5:06 PM) 100 % (04/15/21 3:16 PM) Pulse Rate [55-90 bpm] 88 bpm (04/15/21 5:21 PM) 92 bpm *H* (04/15/21 5:06 PM) 73 bpm (04/15/21 3:16 PM) Blood Pressure [90-138/55-84 mm Hg] 156/98mm Hg *H* (04/15/21 5:21 PM) 156/98mm Hg *H* (04/15/21 5:06 PM) 139/88mm Hg *H* (04/15/21 3:16 PM) Respiratory Rate [16-30 br/min] 18 br/min (04/15/21 5:21 PM) 17 br/min (04/15/21 5:06 PM) 16 br/min (04/15/21 11:21 AM) Temperature [96.8-100.4 DegF] 98.1 DegF (04/15/21 5:21 PM) 97.6 DegF (04/15/21 5:06 PM) 99 DegF (04/15/21 3:16 PM) Mode of Delivery (Oxygen) Room air (04/15/21 5:21 PM) Room air (04/15/21 5:06 PM) Room air (04/15/21 3:16 PM) Blood pressure sites Arm, left (04/15/21 5:21 PM) Arm, right (04/15/21 5:06 PM) Arm, right (04/15/21 3:16 PM) Temperature Route Oral (04/15/21 5:21 PM) Oral (04/15/21 5:06 PM) Oral (04/15/21 3:16 PM) Social History Social History Type Response Smoking Status Never smoker entered on: 03/12/17 Sex
--- OUTSIDE RECORDS SUMMARY | 2023-07-06 16:32 | XMS_ITS | Continuity of Care Document ---
Author [facility] Address [address] [place] [address] Dri ve [address] [place] [address]- Care Team Providers Care Shopping Inspector Name Role Phone Pravin SAHU, Juan Ortega Primary Care Physi [facility] 02[facility]19 - 03/04/[address] [place] [address]- [facility] Encounter Diagnosis Pilonidal disease(Discharge Diagnosis) - 02/25/19 HIV disease(Discharge Diagnosis) - 02/25/19 Attending Physician: Ara SAHU, Tolu Apodaca Referring Physician: Pravin SAHU, Juan Ortega Allergies, [...] en 1Admin Note: VIS GIVEN - 11/18/08 [facility] Medications Colace sodium 100 mg oral capsule 200 mg, 2, capsule, By Mouth, Daily, # 60 capsule, Refills 6, Tot. Refills 6, Maintenance, :52:48 EDT, Route to Pharmacy Electronically, [id number], [facility]/pharmacy #5 Start Date: 09/23/17 Stop Date: 04/21/18 Status: Ordered Colace sodium 100 mg oral capsule 100 mg, 1, capsule, By Mouth, 2 times a day, PRN, # 60 capsule, Refills 3, Tot. Refills 3, Maintenance, for constipation, 01/20/19 9:53:00 EST, Route to Pharmacy Electronically, [id number], [facility] #[id number], 184, c... Start Date: 01/20/19 Status: Ordered [...] 12:07:59 EST Start Date: 04/24/15 Status: Ordered ProAir HFA 90 mcg/inh inhalation aerosol with adapter 2, puffs, Inhalation, Every 4 hours, PRN, # 8.5 Gm, Refills 0, Tot. Refills 0, Maintenance, 01/20/19 10:15:00 EST, Aerosol, Route to Pharmacy Electronically, [id number], [facility] #[id number], 184, cm, 01/20/19 8:19:37... Start Date: 01/20/19 [...] 01/20/19 9:53:00 EST, Route to Pharmacy Electronically, [id number], [facility] #[id number], 184, cm, ... Start Date: 01/20/19 Status: [...] Diagnosis Diagnosis Type Effective Dates Health Status Cl inical Service Informant Pilonidal disease Discharge Diagnosis 02/25/19 HIV disease Discharge Diagnosis 02/25/19 Vital Signs Most recent to oldest [Reference Range]: 1 Height 184 cm (02/25/19 1:44 PM) Weight 127.8 kg (02/25/19 1:44 PM) Body Mass Index [18.5-24.99] 37.75 *>HHI* (02/25/19 1:44 PM) Temperature [96.8-100.4 DegF] 99.0 DegF (02/25/19 1:44 PM) Temperature Route Temporal (02/25/19 1:44 PM) Social History Social History Type Response Smoking Status Never smoker entered on: 1/24/18 Sex
--- OUTSIDE RECORDS SUMMARY | 2023-07-06 16:32 | XMS_ITS | Continuity of Care Document ---
Author Organization [facility] Address [address] [place] [address] ve [address] [place] [address]- Care Team Providers Care Electro Mechanical Engineer Name Role Phone Pravin SAHU, Juan Ortega Primary Care Physi gianni [facility]): 03/26/19 - 04/05/[address] [place] [address]- [facility] Attending Physician: Sunny De Leon Admitting Physician: [...] Note: VIS GIVEN - 11/18/08 [facility] Medications albuterol CFC free 90 mcg/inh inhalation [...] 01/20/19 9:53:00 EST, Route to Pharmacy Electronically, [id number], [facility] #[id number], 184, c... Start Date: 01/20/19 Status: Ordered [...] 10:15:00 EST, Aerosol, Route to Pharmacy Electronically, [id number], [facility] #[id number], 184, cm, 01/20/19 8:19:37... Start Date: 01/20/19 [...] 01/20/19 9:53:00 EST, Route to Pharmacy Electronically, [id number], [facility] #[id number], 184, cm, ... Start Date: 01/20/19 Status: [...]
--- OUTSIDE RECORDS SUMMARY | 2023-07-06 16:32 | XMS_ITS | Continuity of Care Document ---
Author Organization [facility] ter Address [address] [place] [address]- Care Team Providers Care Operations Asst Name Role Phone Pravin SAHU, Juan Ortega Primary Care Physi gianni [facility]counter [facility] Date(s): 07/27/22 - 07/27/[address] [address]- Encounter Diagnosis Encounter for psychiatric assessment(Final) - 07/27/22 Discharge Disposition: A-D/C AMA Attending Physician: Pooja Murdock MD Admitting Physician: Pooja Murdock MD Referring Physician: Not on Staff, Referring [...] 05/17/20 13:49:00 EDT, Route to Pharmacy Electronically, [facility] #[id number], Partial fill upon patient request if the prescription is for a schedule II opi... Start Date: 05/17/20 Stop Date: 06/16/20 Status: Ordered Biktarvy oral tablet 1 tablet, By Mouth, Daily Start Date: 03/18/19 Status: Ordered mirtazapine 15 mg oral tablet 1 tablet = 15 mg, By Mouth, Daily at bedtime, # 30 tablet, 0 Refills, Maintenance, 05/15/20 14:01:00 EDT, Tablet, [facility] #[id number], Partial fill upon patient request if the [...] to oldest [Reference Range]: 1 2 Height 189 cm (07/27/22 7:28 AM) 189 cm (07/27/22 7:15 AM) Weight 98 kg (07/27/22 7:28 AM) 98 kg (07/27/22 7:15 AM) Oxygen Saturation [94-100 %] 100 % (07/27/22 7:15 AM) 100 % (07/27/22 7:13 AM) Pulse Rate [55-90 bpm] 92 bpm *H* (07/27/22 7:15 AM) 98 bpm *H* (07/27/22 7:13 AM) Body Mass Index [18.5-24.99 kg/m2] 27.43 kg/m2 *H* (07/27/22 7:15 AM) Blood Pressure [90-138/55-84 mm Hg] 155/ 94mm Hg *H* (07/27/22 7:15 AM) Respiratory Rate [16-30 br/min] 18 br/mi n (07/27/22 7:15 AM) Temperature [96.8-100.4 DegF] 97.7 DegF (07/27/22 7:15 AM) Mode of Delivery (Oxygen) Room air (07/27/22 7:15 AM) Room air (07/27/22 7:13 AM) Blood pressure sites Arm, right (07/27/22 7:15 AM) Temperature Route Oral (07/27/22 7:15 AM) Dry Weight 98 kg (07/27/22 7:28 AM) 98 kg (07/27/22 7:15 AM) Weight Obtained Via Standing scale (07/27/22 7:15 AM) Dry Weight Obtained Via Standing scale (07/27/22 7:15 AM) Social History Social History Type Response Smoking Status Never smoker entered on: 03/12/17 Sex Patient Care team information Care Team Personnel Name: Juan Costello MD Position: [facility] Outreach Member Role: PCP Address: Address: [address] [place] [address]- [place] Name: Ismael KAUR, Syeda Position: [facility] ED RN W/OE and Tasks Member Role: Patient Care Provider Name: Pooja Murdock MD Position: [facility] Resident Member Role: Admitting Physician Address: Address: [address] [place] [address]- Name: Mar Naqvi Position: [facility] ED TA [facility] Name: Shobha Fuentes MD Position: [facility] Resident Member Role: ED Resident Address: Address: [address] [place] [address]- Care Team Related Persons Name: JAME GILBERT Address: home [address] [facility] [address] [place] [address] Name: MACKENZIE MENDIOLA Address: home [address] [place] [address]
--- OUTSIDE RECORDS SUMMARY | 2023-07-06 16:32 | XMS_ITS | Continuity of Care Document ---
Author Organization [facility] Address [address] [address]- Care Team Providers Care Micro Computer Data Processor Name Role Phone Pravin SAHU, Juan Ortega Primary Care Physi gianni [facility]counter [facility]): 04/13/19 - 05/16/19 [facility] [address] [place] [address]- [facility] Attending Physician: Flavio Collins MD Admitting Physician: Flavio Collins MD Referring Physician: Juan Costello MD Allergies, Adverse Reactions, Alerts Substance Reaction [...] 01/20/19 9:53:00 EST, Route to Pharmacy Electronically, [id number], [facility] #[id number], 184, c... Start Date: 01/20/19 Status: Ordered [...] 10:15:00 EST, Aerosol, Route to Pharmacy Electronically, [id number], [facility] #[id number], 184, cm, 01/20/19 8:19:37... Start Date: 01/20/19 [...] 01/20/19 9:53:00 EST, Route to Pharmacy Electronically, [id number], [facility] #[id number], 184, cm, ... Start Date: 01/20/19 Status: [...]
--- OUTSIDE RECORDS SUMMARY | 2023-07-06 16:32 | XMS_ITS | Continuity of Care Document ---
Author Organization [facility] Address [address] [place] [address]- Care Team Providers Care Meat Loiner Name Role Phone Pravin SAHU, Juan Ortega Primary Care Physi gianni [facility]s): 09/25/19 - 10/25/19 [facility] [address] [place] [address]- [facility] Attending Physician: Sunny De Leon Admitting Physician: Sunny De Leon Referring Physician: Sunny De Leon Allergies, Adverse Reactions, Alerts Substance Reaction Severity [...] 01/20/19 9:53:00 EST, Route to Pharmacy Electronically, [id number], [facility][id number], 184, c... Start Date: 01/20/19 Status: Ordered [...] 10:15:00 EST, Aerosol, Route to Pharmacy Electronically, [id number], [facility] #[id number], 184, cm, 01/20/19 8:19:37... Start Date: 01/20/19 [...] 01/20/19 9:53:00 EST, Route to Pharmacy Electronically, [id number], [facility] #[id number], 184, cm, ... Start Date: 01/20/19 Status: [...]
--- OUTSIDE RECORDS SUMMARY | 2023-07-06 16:32 | XMS_ITS | Continuity of Care Document ---
Author Organization [facility] Address [address] [place] [address] [address] [place] [address]- Care Team Providers Care Compressor Operator Name Role Phone Pravin SAHU, Juan Ortega Primary Care Physi [facility]counter [facility](s): 02/25/19 - 04/25/[address] [place] [address]- [facility] Attending Physician: Raeann NAVARRETE, Luz Elena Wu Referring Physician: Juan Costello MD Allergies, Adverse [...] 01/20/19 9:53:00 EST, Route to Pharmacy Electronically, [id number], [facility] #[id number], 184, c... Start Date: 01/20/19 Status: Ordered [...] 10:15:00 EST, Aerosol, Route to Pharmacy Electronically, [id number], [facility] #[id number], 184, cm, 01/20/19 8:19:37... Start Date: 01/20/19 [...] 01/20/19 9:53:00 EST, Route to Pharmacy Electronically, [id number], [facility] #[id number], 184, cm, ... Start Date: 01/20/19 Status: [...]
--- OUTSIDE RECORDS SUMMARY | 2023-07-06 16:32 | XMS_ITS | Continuity of Care Document ---
Author Organization [facility] Address [address] [address]- Care Team Providers Care Apartment Rental Agent Name Role Phone Pravin SAHU, Juan Ortega Primary Care Physi gianni [facility]counter [facility](s): 01/13/19 - 04/08/19 [facility] [address] [address]- [facility] Attending Physician: Jareth SAHU, Tomy Ortega Admitting Physician: Tomy Templeton MD Referring Physician: Jason Berg MD Allergies, [...] 01/20/19 9:53:00 EST, Route to Pharmacy Electronically, [id number], [facility] #[id number], 184, c... Start Date: 01/20/19 Status: Ordered [...] 10:15:00 EST, Aerosol, Route to Pharmacy Electronically, [id number], [facility] #[id number], 184, cm, 01/20/19 8:19:37... Start Date: 01/20/19 [...] 01/20/19 9:53:00 EST, Route to Pharmacy Electronically, [id number], [facility] #[id number], 184, cm, ... Start Date: 01/20/19 Status: [...]
--- OUTSIDE RECORDS SUMMARY | 2023-07-06 16:32 | XMS_ITS | Continuity of Care Document ---
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 available 09/09 if you or someone you know needs to find a reason to keep living. By calling 587 you'll be connected to a skilled, trained counselor at a crisis center in your area. INPATIENT DISCHARGE INSTRUCTIONS SIGNATURE EUSEBIO SLADE Location:[facility] Registration Date and Time:04/21/2023 20:25 EST Primary Care Physician: Pravin SAHU, Juan Ortega, Attending Physician: Prasanth Vallejo MD, I EUSEBIO GILBERT, have received the above patient education materials/instructions and have verbalized understanding. If ambulance or transport services are being used I further acknowledge being given a choice of service. ?? If you need to contact me, please call me at this number: . Patient/Cardiology Manager Name: Patient/Cardiology Manager Signature: Relationship to Patient: Witness Name/Signature: Date: Patient Care team information Care Team Personnel Name: Kirstie Dee LPN Position: [facility] RN Member Role: Primary Care Nurse Name: Juan Costello MD Position: [facility] Outreach Member Role: PCP Address: Address: [address] [place] [id number] Care Team Related Persons Name: JAME GILBERT Address: home [address] [place] [address] Name: MACKENZIE MENDIOLA Address: home [address] [place] [address]
--- OUTSIDE RECORDS SUMMARY | 2023-07-06 16:32 | XMS_ITS | Continuity of Care Document ---
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 Phone Pravin SAHU, Juan Ortega Primary Care Physi [facility] Encounter [facility] Date(s): 03/18/19 - 03/18/[address] [address]- [facility] Encounter Diagnosis Influenza B(Final) - 03/18/19 Discharge Disposition: A-D/C Home Attending Physician: Conrad Sandoval DO Admitting Physician: Conrad Sandoval DO Referring Physician: Not on Staff, Referring MD [...] Note: [facility] G[facility] - [facility]18/08 [facility] Medications albuterol CFC free 90 mcg/inh inhalation [...] 01/20/19 9:53:00 EST, Route to Pharmacy Electronically, [id number], [facility] #[id number], 184, c... Start Date: 01/20/19 Status: Ordered [...] PO QHS Start Date: 03/18/19 Status: Ordered oseltamivir 75 mg oral capsule 1 capsule = 75 mg, By Mouth, 2 times a day, for 5 days, # 10 capsule, 0 Refills, Acute 03/23/19 19:30:00 EST, 03/18/19 19:30:00 EST, Capsule, 188, cm, 03/18/19 17:09:00 EST, Height, 114, kg, 03/18/2016:09:00 EST, Dry Weight Start Date: 03/18/19 Stop Date: 03/23/19 Status: Ordered ProAir HFA 90 mcg/inh inhalation aerosol with adapter 2, puffs, Inhalation, Every 4 hours, PRN, # 8.5 Gm, Refills 0, Tot. Refills 0, Maintenance, 01/20/19 10:15:00 EST, Aerosol, Route to Pharmacy Electronically, [id number], [facility] #[id number], 184, cm, 01/20/19 8:19:37... Start Date: 01/20/19 [...] 01/20/19 9:53:00 EST, Route to Pharmacy Electronically, [id number], [facility] #[id number], 184, cm, ... Start Date: 01/20/19 Status: [...] to oldest [Reference Range]: 1 2 Height 188 cm (03/18/19 5:09 PM) 188 cm (03/18/19 5:01 PM) Weight 114 kg (03/18/19 5:09 PM) 114 kg (03/18/19 5:01 PM) Oxygen Saturation [94-100 %] 100 % (03/18/19 7:53 PM) 100 % (03/18/19 5:01 PM) Pulse Rate [55-90 bpm] 80 bpm (03/18/19 7:53 PM) 87 bpm (03/18/19 5:01 PM) Body Mass Index [18.5-24.99] 32.25 *>HHI* (03/18/19 5:01 PM) Blood Pressure [90-138/55-84 mm Hg] 146/ 88mm Hg *H* (03/18/19 7:53 PM) 113/87mm Hg (03/18/19 5:01 PM) Respiratory Rate [16-30 br/min] 20 br/mi n (03/18/19 7:53 PM) 19 br/min (03/18/19 5:01 PM) Temperature [96.8-100.4 DegF] 98.2 DegF (03/18/19 7:53 PM) 100.2 DegF (03/18/19 5:01 PM) Mode of Delivery (Oxygen) Room air (03/18/19 7:53 PM) Room air (03/18/19 5:01 PM) Blood pressure sites Arm, right (03/18/19 7:53 PM) Arm, right (03/18/19 5:01 PM) Temperature Route Oral (03/18/19 7:53 PM) Oral (03/18/19 5:01 PM) Dry Weight 114 kg (03/18/19 5:09 PM) 114 kg (03/18/19 5:01 PM) Weight Obtained Via Patient/family state d (03/18/19 5:01 PM) Dry Weight Obtained Via Patient/family s tated (03/18/19 5:01 PM) Social History Social History Type Response Smoking Status Never smoker entered on: 03/12/17 Sex
--- OUTSIDE RECORDS SUMMARY | 2023-07-06 16:32 | XMS_ITS | Continuity of Care Document ---
Author Organization [facility] ter Address [address] [place] [id number]- Care Team Providers Care Fence Installer Helper Name Role Phone Juan Costello MD Primary Care Physi gianni [facility] Date(s): 09/03/20 - 09/04/[address] [place] [address] [address]- Discharge Disposition: A-D/C Walkout Attending Physician: Not [...] en 1Admin Note: VIS GIVEN - 11/18/08 [facility] Medications albuterol CFC free 90 mcg/inh [...] 05/17/20 13:49:00 EDT, Route to Pharmacy Electronically, [facility] #[id number], Partial fill upon patient request if the prescription is for a schedule II opi... Start Date: 05/17/20 Stop Date: 06/16/20 Status: Ordered Biktarvy oral tablet 1 tablet, By Mouth, Daily Start Date: 03/18/19 Status: Ordered mirtazapine 15 mg oral tablet 1 tablet = 15 mg, By Mouth, Daily at bedtime, # 30 tablet, 0 Refills, Maintenance, 05/15/20 14:01:00 EDT, Tablet, [facility] #[id number], Partial fill upon patient request if the [...] [Reference Range]: 1 2 Height 188 cm (09/03/20 3:06 PM) Weight 104 kg (09/03/20 3:06 PM) Oxygen Saturation [94-100 %] 100 % (09/03/20 1:57 PM) 98 % (09/03/20 1:53 PM) Pulse Rate [55-90 bpm] 72 bpm (09/03/20 1:57 PM) 81 bpm (09/03/20 1:53 PM) Blood Pressure [90-138/55-84 mm Hg] 133/ 91mm Hg (09/03/20 1:57 PM) Respiratory Rate [16-30 br/min] 18 br/mi n (09/03/20 1:57 PM) Temperature [96.8-100.4 DegF] 97.9 DegF (09/03/20 1:57 PM) Mode of Delivery (Oxygen) Room air (09/03/20 1:57 PM) Room air (09/03/20 1:53 PM) Blood pressure sites Arm, right (09/03/20 1:57 PM) Temperature Route Oral (09/03/20 1:57 PM) Dry Weight 104 kg (09/03/20 3:06 PM) Weight Obtained Via Patient/family state d (09/03/20 3:06 PM) Dry Weight Obtained Via Patient/family s tated (09/03/20 3:06 PM) Social History Social History Type Response Smoking Status Never smoker entered on: 03/12/17 Sex
--- NOTE | 2023-07-06 17:06 | MHC.EDTECH ---
no answer for lab work at 1252
== END 2023-07-06 20:07 | disposition left against medical advice (07) ==
PROVIDERS: Emergency Provider Emergency Medicine; PCP Internal Medicine
DX: Z02.79 Encounter for issue of other medical certificate (principal); F32.A Depression, unspecified; Z53.21 Procedure and treatment not carried out due to patient leaving prior to being seen by health care provider
CPT/HCPCS: 99281

== ENCOUNTER 2023-12-05 14:23 | Inpatient (IN) | payer OTHER, SELFPAY ==
--- NOTE | 2023-12-05 14:25 | ED_ITS ---
HPI - Psych General Chief Complaint: Psychiatric Symptoms Stated Complaint: crisis Time Seen by Provider: 12/05/23 14:59 Source: patient, RN notes reviewed and old records reviewed Mode of arrival: ambulatory History of Present Illness ED Provider: Marilynn Rankin PA-C HPI Narrative: 38-year-old male with a past medical history of TBI presenting to ED complaining of intermittent blacking out episodes x few months and myalgias/fatigue. States he wakes up in unknown places, and sometimes different states. Does not remember anything or how he got there. Reports history of substance abuse, however states he is sober, and unsure if he is using drugs. Denies SI at present, however recently suicidal. Reports noncompliance with his medications as he can not remember to take them. Related Data Home Medications ?Medication ?Instructions ?Recorded ?Confirmed No Known Home Meds 12/05/23 12/05/23 Allergies Allergy/AdvReac Type Severity Reaction Status Date / Time shellfish derived Allergy Severe ANAPHYLAXIS Verified 12/05/23 14:31 [SHELLFISH DERIVED] oxycodone [From PERCOCET] AdvReac Intermediate ITCHINESS Verified 12/05/23 14:31 Review of Systems 2 Review of Systems: Yes all other systems are reviewed and are negative Constitutional: Constitutional: Reports as per HPI [facility] Past Medical History Attestation statement: The following information was validated with the patient. Source: old records reviewed Social History Social History Alcohol intake: current Alcohol intake frequency: a few times a month Smoked in Last 30 Days: Yes Use of substances other than those prescribed or required for medical reasons: Unknown Substance Use Type Other:: pt reports he doesnt know if he uses drugs Advance Directives: No Advance Directives Information Provided: Yes Do you have a plan to hurt others: No Plan Physical Exam 2 Vital Signs: Vital Signs: Last Vital Signs Temp 98.4 F 12/05/23 14:26 Pulse 83 12/05/23 14:26 Resp 16 12/05/23 14:56 BP 138/100 H 12/05/23 14:26 Pulse Ox 99 12/05/23 14:26 O2 Del Method Room Air 12/05/23 14:26 BMI result Body Mass Index 28.2 Const: General: cooperative and no acute distress O rientation/consciousness: patient oriented x3 Limitations: no limitations HEENT: Head: Yes normal to inspection and Yes atraumatic Ears: hearing grossly normal bilaterally General nose exam: Normal external nose present Face and sinus: Yes normal facial exam Eyes: General: appearance normal, both eyes and all related structures EOM: EOMs intact bilaterally Neck: Neck: Yes normal visual inspection and Yes no meningeal signs Resp: Effort & Inspection: normal respiratory effort and no respiratory distress Auscultation: clear to auscultation bilaterally Cardio: Rate: regular rate Heart sounds: S1 normal heart sound present and S2 normal heart sound present GI: Inspection: Yes normal to inspection Palpation (GI): Soft to palpation, nontender, no guarding and not rigid Skin: Rashes: no rashes Wounds: no wounds Neuro: General: patient oriented x3, tone normal, no meningeal signs and CN's II-XI intact bilaterally Cranial nerves: Yes CN's II-XII intact bilaterally Gait exam (Neuro): Normal gait present Extrem: General: Yes normal to inspection Psych: Affect: Sad affect present Attitude: cooperative Thought content: suicidality and no homicidality Insight: Limited insight present (Psych) Course Course Course Narrative: This is a rapid medical exam performed by Alice Vaz NP: Additional HPI, ROS, PE not included below will be deferred to primary provider. Patient is a 38-year-old male with history of TBI presenting to the emergency department with complaint of blacking out, states he has been waking up in places and is unsure how he got there. Denies feeling suicidal today, but states he felt suicidal the other day due to the blackouts, was going to jump off a bridge. Stopped taking his medications months ago. Denies auditory or visual hallucinations. Reports generalized body aches, feeling exhausted. Plan: med clearance then care team eval -1613--labs reassuring. UA negative. Tox screen positive for cocaine and THC -1621--CPK mildly elevated to 491 >> will push p.o. fluids. Physician observation initiated as patient needs more time to be evaluated by CARE team -patient was evaluated by CARE team however minimally engaged. Plan for re eval tomorrow. -2100--ED care transferred to SHAYY Britton pending CARE team or eval tomorrow Medical Decision Making Medical Decision Making MDM Narrative: 38-year-old male with a past medical history of TBI presenting to ED complaining of intermittent blacking out episodes x few months and myalgias/fatigue. On exam hypertensive, NAD, nontoxic appearing, sad, denies/HI. Concern for substance abuse vs dissociation. Rule out organic causes including metabolic abnormalities and infectious etiologies. Low suspicion for ICH Plan: EKG, Labs, tox screen, CARE team consult Please refer to course for remaining clinical decision making, interpretation of labs/imaging results, and discussions with consultants and/or family members. Differential Diagnosis Differential Diagnoses: The differential diagnosis associated with the presentation includes As above Admission/Observation Consideration of admission/observation: Escalation of care including admission/observation considered Consult Healthcare Provider Management of the patient was discussed with: Behavioral Health Provider Lab Data MDM Lab Attestation statement: I reviewed the patient's lab results. 12/05/23 14:43 12/05/23 14:43 Labs: Lab Results 12/05/23 12/05/23 Range/Units 14:43 14:44 WBC 7.5 (4.8-10.8) X10*3/uL RBC 4.52 L (4.60-5.80) X10*6/uL Hgb 12.6 L (14.0-18.0) g/dl Hct 38.7 L (42.0-52.0) % MCV 85.6 (80.0-98.0) fL MCH 27.9 (27.0-33.0) pg MCHC 32.6 (31.0-36.0) g/dl RDW 12.9 (11.0-16.0) % Plt Count 263 (160-400) X10*3/uL MPV 9.2 L (9.4-12.4) fL Immature Gran % (Auto) 0.3 (0.0-0.4) % Neut % (Auto) 47.1 (45-73) % Lymph % (Auto) 38.2 (20-40) % [place] % (Auto) 4.9 (2-11) % Eos % (Auto) 9.0 H (0-4) % Baso % (Auto) 0.5 (0-2) % Lymph # (Auto) 2.9 (1.2-4.9) X10*3/uL [place] # (Auto) 0.4 (0.1-1.2) X10*3/uL Eos # (Auto) 0.7 H (0.0-0.4) X10*3/uL Baso # (Auto) 0.0 (0.0-0.2) X10*3/uL Abs Immat Gran (auto) 0.02 (0.00-0.03) X10*3/uL Absolute Neuts (auto) 3.5 (2.0-8.3) x10*3/uL Absolute Nucleated RBC 0.000 (0.0-0.012) X10*3/uL Nucleated RBC % (auto) 0.0 (0.0-0.2) /100WBC Sodium 139 (135-145) mmol/L Potassium 3.8 (3.3-5.1) mmol/L Chloride 106 (96-108) mmol/L Carbon Dioxide 28 (22-29) mmol/L Anion Gap 9 L (12-20) BUN 12 (9-16) mg/dL Creatinine 0.88 (0.5-1.4) mg/dL Estim Creat Clear Calc 146.4 Estimated GFR > 60 Random Glucose 118 H (60-115) mg/dL Calcium 9.0 D (8.4-10.2) mg/dL Magnesium 1.9 (1.6-2.6) mg/dL Total Bilirubin 0.3 (0.0-1.0) mg/dL AST 23 (5-37) U/L ALT 21 (0-40) U/L Alkaline Phosphatase 58 (39-117) U/L Total Creatine Kinase 491 H (38-174) U/L Total Protein 7.4 (6.5-8.0) g/dL Albumin 4.0 (3.5-5.0) g/dL Urine Color Yellow Urine Appearance Cloudy Urine pH 7.0 (5.0-9.0) Ur Specific [place] >= 1.030 H (1.005-1.025) Urine Protein Trace (Neg-Trace) mg/dL Urine Glucose (UA) Negative (Negative) mg/dL Urine Ketones Trace (Negative) mg/dL Urine Blood Negative (Negative) Urine Nitrite Negative (Negative) Ur Leukocyte Esterase Negative (Negative) Urine Opiates Screen Not Detected (Not Detect) Ur Buprenorphine Scrn Not Detected (Not Detect) ng/mL Ur Oxycodone Screen Not Detected (Not Detect) ng/mL Urine Methadone Screen Not Detected (Not Detect) ng/mL Urine Fentanyl Screen Not Detected (Not Detect) Ur Barbiturates Screen Not Detected (Not Detect) Ur Phencyclidine Scrn Not Detected (Not Detect) Ur Amphetamines Screen Not Detected (Not Detect) U Benzodiazepines Scrn Not Detected (Not Detect) Urine Cocaine Screen POSITIVE H (Not Detect) U Marijuana (THC) Screen POSITIVE H (Not Detect) Ethyl Alcohol < 10 mg/dL Influenza Type A (PCR) NEGATIVE (Negative) Influenza Type B (PCR) NEGATIVE (Negative) RSV RNA Qual (PCR) NEGATIVE (Negative) SARS-CoV-2 RNA (RT-PCR) NEGATIVE (Negative) Independent Interpretation I performed an independent interpretation of an: EKG Radiology Impression Discussion of test interpretation with radiology: I have reviewed the radiologist's reading. External Record Review External record reviewed: Inpatient record, Office record, Outpatient record, Prior outpatient labs, Prior outpatient radiology, Primary care record and Outside ED record Tests considered The following testing was considered but not selected: As above Social Determinants Patient?s care significantly limited by Social Determinants of Health including: Alcoholism and drug addiction in family and Problems related to primary support group Discharge Plan Discharge Clinical Impression: Memory deficit, Depression Patient Disposition: Still a Patient Prescriptions: No Action No Known Home Meds Interventions: Grand-Suicide Risk Severity Scale Last Done: 12/05/23 14:56 Print Language: Cambodian
[2023-12-05 14:26] VITALS: BP 138/100; PULSE 83; RESP 18; TEMP 36.9; O2SAT 99; BMI 28.2
--- NOTE | 2023-12-05 14:28 | ECG_ITS ---
Test Reason : BLACKING OUT Blood Pressure : / mmHG Vent. Rate : 069 BPM Atrial Rate : 069 BPM P-R Int : 156 ms QRS Dur : 094 ms QT Int : 414 ms P-R-T Axes : 067 039 052 degrees QTc Int : 443 ms Normal sinus rhythm Normal ECG When compared with ECG of 13-JAN-2017 08:56, No significant change was found Referred By: Jud Vaz Electronically Signed By:MAGALI SCOTT
--- NOTE | 2023-12-05 14:49 | PC.NURSE ---
Onel comes to the ED today reporting that recently he has been having spells of blacking out which also come around times where he feels suicidal. he reports a plan to jump of a bridge at this time. he states he saw crisis this am but is looking for inpatient help. pt reports he used to be on Abilify and [place] but has been off of the medications for about 2 months now. He denies HI/AH/VH. Is calm and cooperative, aware of plan of care for med clearance and then care team eval.
[2023-12-05 14:51] LABS: MANUAL DIFF FLAG NO
[2023-12-05 14:52] LABS: Basophils Percent Auto 0.5 % (0-2); Eosinophils Absolute Auto 0.7 X10*3/uL (0.0-0.4); Hematocrit 38.7 % (42.0-52.0); Hemoglobin 12.6 g/dl (14.0-18.0); Imm Gran Abs Auto 0.02 X10*3/uL (0.00-0.03); Imm Gran Pct Auto 0.3 % (0.0-0.4); Lymphocytes Absolute Auto 2.9 X10*3/uL (1.2-4.9); Lymphocytes Percent Auto 38.2 % (20-40); Mean Corpuscular HGB Conc 32.6 g/dl (31.0-36.0); Mean Corpuscular Hemoglobin 27.9 pg (27.0-33.0); Mean Corpuscular Volume 85.6 fL (80.0-98.0); Mean Platelet Volume 9.2 fL (9.4-12.4); Monocytes Absolute Auto 0.4 X10*3/uL (0.1-1.2); Monocytes Percent Auto 4.9 % (2-11); Neutrophils Absolute Auto 3.5 x10*3/uL (2.0-8.3); Neutrophils Percent Auto 47.1 % (45-73); Platelet Count 263 X10*3/uL (160-400); Red Blood Count 4.52 X10*6/uL (4.60-5.80); Red Cell Distribution Width 12.9 % (11.0-16.0); White Blood Count 7.5 X10*3/uL (4.8-10.8)
[2023-12-05 14:54] LABS: Appearance Urine Cloudy; Color Urine Yellow; Glucose Urine UA Negative (Negative); Leukocyte Esterase Urine Negative (Negative); Nitrite Urine Negative (Negative); Specific Gravity - Urine >= 1.030 (1.005-1.025); Urine Blood Negative (Negative); Urine Ketones Trace mg/dL (Negative); Urine Protein Trace mg/dL (Neg-Trace)
[2023-12-05 14:56] VITALS: RESP 16
[2023-12-05 15:04] LABS: Amphetamine Screen Urine Not Detected (Not Detect); Barbiturates, Urine Not Detected (Not Detect); Benzodiazepines Screen Urine Not Detected (Not Detect); Buprenorphine Scr Not Detected (Not Detect); Cannabinoid Screen Urine POSITIVE (Not Detect); Cocaine Screen Urine POSITIVE (Not Detect); Fentanyl, urine Not Detected (Not Detect); Methadone Screen, Urine Not Detected (Not Detect); Opiate Screen Urine Not Detected (Not Detect); Oxycodone Screen Urine Not Detected (Not Detect); Phencyclidine Screen Urine Not Detected (Not Detect)
[2023-12-05 15:10] LABS: Alanine Aminotransferase 21 U/L (0-40); Alkaline Phosphatase 58 U/L (39-117); Anion Gap 9 (12-20); Aspartate Amino Transferase 23 U/L (5-37); Bilirubin Total 0.3 mg/dL (0.0-1.0); Blood Urea Nitrogen 12 mg/dL (9-16); Carbon Dioxide 28 mmol/L (22-29); Chloride 106 mmol/L (96-108); Creatinine Clr Calc Pharmacy 146.4; Estimated Glomerular Filt Rate > 60; Glucose Random 118 mg/dL (60-115); Magnesium 1.9 mg/dL (1.6-2.6); Potassium 3.8 mmol/L (3.3-5.1); Sodium 139 mmol/L (135-145); Total Protein 7.4 g/dL (6.5-8.0)
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
--- OUTSIDE RECORDS SUMMARY | 2023-12-05 15:10 | XMS_ITS | Continuity of Care Document ---
Author Organization [facility] ter Address [address] [place] [id number] Care Team Providers Care Software Quality Analyst Name Role Phone Pravin SAHU, Juan Ortega Primary Care Physi gianni Encounter [facility] Date(s): 09/21/23 - 09/21/[address] [id number]- Encounter Diagnosis Opioid withdrawal(Final) - 09/21/23 Substance abuse(Final) - 09/21/23 Discharge Disposition: A-D/C Home Attending Physician: Lyn Reece MD Admitting Physician: Lyn Reece MD Referring Physician: Not on Staff, Referring MD Allergies, Adverse Reactions, Alerts Substance Reaction Severity Status shellfish throat swells up swelling eyes face Active Immunizations Given and Recorded Vaccine Date Status Refusal Reason tetanus/diphtheria/pertussis, acel(Tdap) 04/22/23 Given tetanus/diphtheria/pertussis, acel(Tdap) 08/31/21 Given tetanus/diphtheria/pertussis, acel(Tdap) 10/24/10 Recorded [id number] bivalent booster vax 03/14/22 Recorded SARS-CoV-2 (COVID-19) [...] en 1Admin Note: VIS GIVEN - 11/18/[address] [facility] Medications acetaminophen 500 mg oral tablet 2 tablet = 1,000 mg, By Mouth, 3 times a day, PRN as needed for pain, # 24 tablet, 0 Refills, Maintenance, 04/25/23 10:36:00 EST, Tablet, [facility], Partial fill upon patient [...] 0 Refills, Maintenance, 04/25/23 10:35:00 EST, Ointment, [facility], Partial fill upon patient [...] 0 Refills, Maintenance, 04/25/23 10:34:00 EST, Tablet, [facility], Partial fill upon patient request if the prescription is for a schedule II opioid drug., 178, cm, 01/06/23 13:58:... Start Date: 04/25/23 Stop Date: 05/25/23 Status: Ordered Methadone Tablet 30 mg, Tablet, By Mouth, Once, STAT, 09/21/23 11:22:00 EDT, Stop date 09/21/23 11:22:00 EDT Start Date: 09/21/23 Stop Date: 09/21/23 Status: Completed Remeron 15 mg oral tablet 0.5 tablet = 7.5 mg, By Mouth, Daily at bedtime, # 15 tablet, 0 Refills, Maintenance, 04/25/23 10:35:00 EST, Tablet, [facility], Partial fill upon patient request if the prescription isfor a schedule II opioid drug., 178, cm, 01/06/23 1... Start Date: 04/25/23 Stop Date: 05/25/23 Status: Ordered traZODone 50 mg oral tablet 25 mg, 0.5, tablet, By Mouth, 3 times a day, PRN, # 30 tablet, Refills 0, Tot. Refills 0, Maintenance, Anxiety, 04/25/23 10:35:00 EST, Route to Pharmacy Electronically, [facility], Partial fill upon patient [...] 3 Oxygen Saturation [94-100 %] 99 % (09/21/23 9:02 PM) 98 % (09/21/23 11:47 AM) Pulse Rate [55-90 bpm] 92 bpm *H* (09/21/23 9:02 PM) 75 bpm (09/21/23 11:47 AM) Blood Pressure [90-138/55-84 mm Hg] 135/95mm Hg (09/21/23 9:02 PM) 126/92mm Hg (09/21/23 11:47 AM) Respiratory Rate [16-30 br/min] 17 br/min (09/21/23 9:02 PM) 18 br/min (09/21/23 12:38 PM) 18 br/min (09/21/23 11:47 AM) Temperature [96.8-100.4 DegF] 98.9 DegF (09/21/23 9:02 PM) 97.9 DegF (09/21/23 11:47 AM) Mode of Delivery (Oxygen) Room air (09/21/23 9:02 PM) Room air (09/21/23 11:47 AM) Blood pressure sites Arm, left (09/21/23 9:02 PM) Arm, right (09/21/23 11:47 AM) Temperature Route Oral (09/21/23 9:02 PM) Oral (09/21/23 11:47 AM) Social History Social History Type Response Smoking Status Never smoker entered on: 03/12/17 Sex Male EKG study * Event Display: ECG 12-Lead Authored Date: Please click on pdf link to open report * Event Display: ECG 12-Lead Authored Date: Ventricular Rate: 58 BPM Atrial Rate: 58 BPM P-R Interval: 158 ms QRS Duration: 94 ms Q-T Interval: 422 ms QTC Calculation(Bazett): 414 ms P [place]: 57 degrees R [place]: 47 degrees T [place]: 47 degrees Sinus bradycardia with sinus arrhythmia Otherwise normal ECG When compared with ECG of 21-APR-2023 21:46, QT has shortened Confirmed by Bert Calvillo ([id number]) on 09/21/2023 12:56:34 PM Lynco: Bert Calvillo Note * Deanne Cottrell DO: PERFORM Event Display: Patient Education Leaflets Authored Date: [id number] Drug Abuse ?? [id number] Drug Abuse Use and abuse of drugs or medicines may lead to addiction or dependence. You may hear drug abuse oraddiction called substance use disorder (ASHLIE). Examples of illegal drugs include amphetamines (alsoknown as speed or crank), methamphetamines (meth), cocaine, heroin, bath salts, and hallucinogens (such as MDMA, ecstasy, PCP, mescaline, and LSD). Xylazine is a sedative and pain reliever approved only for animals. It's not approved or safe for people. It's known by the street name tranq. Xylazine has been found in street drugs, especially heroin and fentanyl. It has been linked to overdoses and . Severe side effects from xylazine include slow heart beat and breathing, low blood pressure, skin sores, and coma. In some states, marijuana is an illegal drug. Medicines include prescription medicines, sedatives, and sleeping pills. Once addiction or dependence happens, you are at greater risk for the problems below. Social and personal problems ??? Craving for the drug and not being able to stop using even though you think you want to stop (psychological addiction) ??? Drug withdrawal symptoms if you stop takingthe drug (physical dependence) ??? Loss of friends and family ??? School or work problems ??? Arrest, conviction, and intermediate sentence for possession of an illegal substance or for driving under the infl uence ?? Health problems ??? Stroke, heart attack, heart failure, and kidney failure ??? Accidental injuriesto yourself or others while you are under the influence of a drug (in a car or at home) ??? HIV infection. This is a much greater risk if you use IV drugs. ??? Skin infections ??? Other sexually transmitted infections (STIs), such as herpes, chlamydia, and gonorrhea ??? Severe and fatal infection of the heart valves if you use IV drugs ??? Hepatitis B or C ??? Dementia, mood disorders, persistenthallucinations (particularly with hallucinogens) ??? Dental problems from methamphetamine abuse ??? from overdose ?? Home care The following suggestions can help you care for yourself at home: ??? Admit you have a drug problem. Ask for help from your family and close friends. ??? Seek professional help. This could be one-on-one therapy or counseling. There are also outpatient, inpatient, and residential drug treatment programs. ??? Join a self-help group for drug abuse. ??? Stay away from friends who abuse drugs or temptyou to continue abusing drugs. ??? Eat a balanced diet and start a regular exercise program. ?? Follow-up care Follow up with your healthcare provider, or as advised. Contact 1 of the resources below for help: ??? Substance Abuse and Mental Health Services Administration (SAMHSA) at www.samhsa.gov/findtreatment ??? National [place] on Alcoholism and Drug Dependence at www.ncadd.org ??? Narcotics Anonymous at www.na.org ?? Call 911 Call 911 right away if any of these occur: ??? Seizure ??? Hard time breathing or slow, irregular breathing ??? Chest pain ??? Sudden weakness on 1 side of your body or sudden trouble speaking ??? Very drowsy or trouble waking up ??? Fainting or loss of consciousness ??? Fast heart rate ??? Very slow heart rate ?? When to get medical care Call your healthcare provider if any of these occur: ??? Agitation, anxiety, or unable to sleep ???Unintended weight loss. This means more than 10 to 15 pounds over 3 months. ??? Fever of 100.4??F (38??C) or higher, or as advised by your provider ??? Shortness of breath ??? Cough with colored sputum ??? Redness, swelling, or tenderness at an injection site ??? You think counseling or drug rehabilitation services are needed to prevent additional drug use ?? Last Reviewed Date: 2021 ?? 5962-9509 [employer]. All rights reserved. This information is not intended as a substitute for professional medical care. Always follow your healthcare professional's instructions. ?? Patient Care team information Care Team Personnel Name: Kirstie Dee LPN Position: [facility] RN Member Role: Primary Care Nurse Name: Pravin SAHU, Juan Ortega Position: [facility] Outreach Member Role: PCP Address: Address: [address] [place] [id number] Name: Kilo Cm RN Position: [facility] RN Member Role: Primary Care Nurse Care Team Related Persons Name: JAME GILBERT Address: home [address] [address] Name: MACKENZIE MENDIOLA Address: home [address] [place] [address]
[2023-12-05 15:14] LABS: Ethanol < 10 mg/dL
[2023-12-05 15:28] LABS: Influenza A PCR NEGATIVE (Negative); Influenza B PCR NEGATIVE (Negative); Resp Syncy Virus RNA Qual PCR NEGATIVE (Negative); SARS COV2 PCR INHOUSE NEGATIVE (Negative)
--- NOTE | 2023-12-05 16:13 | MHC.CARE ---
Contacted [facility] crisis who report that they assessed Pt earlier today in the community due to anxiety, depression and suicidal ideation. Yvette (the assessing clinician) found Pt appropriate for [facility] level of care, however there is no bed availability at [facility] or [facility]. [facility] sent Pt to [facility] for medical clearance, as Pt reported recently blacking out through out the day without being able to recall what happened during it. During a black out Pt found himself standing on the side of a bridge. [facility] to fax their evaluation to the CARE Team shortly.
--- NOTE | 2023-12-05 16:29 | MHC.EDTECH ---
Addendum entered by Kendra Arora 12/05/23 16:54: Patient reports he does not need another blood draw SHAYY crawford Original Note: PT refuses blood draw. VINCENT Crawford
[2023-12-06 06:48] VITALS: BP 119/92; PULSE 88; RESP 17; TEMP 36.9; O2SAT 98
--- NOTE | 2023-12-06 07:27 | PC.NURSE ---
Assumed care of patient at 0645, patient appears to be in no apparent distress this am, calm and cooperative, ate 100% of breakfast, offering no complaints at this time. patient aware of plan of care for CARE team re-eval today
--- NOTE | 2023-12-06 09:24 | PC.NURSE ---
Pt reports he takes Biktarvy, despite reporting not having taken medications for multiple months yesterday to this RN. He reports he last took his Biktarvy about one week prior to arrival
--- NOTE | 2023-12-06 10:13 | PM.PSYCN ---
History of Present Illness Date of Service: t Chief Complaint: crisis Reason for Consult: Assessment of medication management Discussed with referring provider: Yes Sources of Information: patient interviewed, chart reviewed and crisis/core team assessment reviewed HPI Narrative: The patient is a 38-year-old male who self-referred to the emergency room complaining of suicidal ideation with a plan to jump off a bridge. The patient had a history of chronic mental illness, he has engaged on [facility] program and apparently he had been requesting to go to a halfway. When he arrived to the emergency room, the patient complained that he blacks out and he is unable to remember if he has taking his medications or where he is. He was assessed by the crisis team and the medical team and he is waiting for inpatient level of care. On interview the patient reported that he had been seen mental health caregivers since he was a young boy, he is unable to provide asked what kind of diagnosis he has but according to the records, he had been on lithium Abilify and Remeron in the past. He has a very poor historian but he is pleasant and cooperative. During the interview the patient admitted that he has been having suicidal thoughts with a plan to jump off the bridge. He was advocating to go to a halfway. The nursing staff reported that the patient had been pleasant, cooperative with poor sleep last night. We discussed at length with the patient risks, benefits, side-effects and alternatives and he agreed to restart medications. Apparently he had been noncompliant with medications since July this year. He denies active auditory hallucinations. Past Psychiatric History: The patient is a very poor historian but apparently he has prior psychiatric admissions into the hospital. He is involved with [facility] case managing on [facility] program. Medical Evaluation Reviewed: Yes Diagnostics Vital Signs (24Hr): Vital Signs - 24 hr 12/05/23 14:26 12/05/23 14:56 12/06/23 06:48 Temperature 98.4 F 98.5 F Pulse Rate 83 88 Respiratory Rate 18 16 17 Blood Pressure 138/100 H 119/92 H Pulse Oximetry 99 98 Oxygen Delivery Method Room Air Room Air BMI result Body Mass Index 28.2 Labs 12/05/23 14:43 12/05/23 14:43 Labs: Laboratory Results - last 48 hr 12/05/23 12/05/23 14:43 14:44 WBC 7.5 RBC 4.52 L Hgb 12.6 L Hct 38.7 L MCV 85.6 MCH 27.9 MCHC 32.6 RDW 12.9 Plt Count 263 MPV 9.2 L Immature Gran % (Auto) 0.3 Neut % (Auto) 47.1 Lymph % (Auto) 38.2 [place] % (Auto) 4.9 Eos % (Auto) 9.0 H Baso % (Auto) 0.5 Lymph # (Auto) 2.9 [place] # (Auto) 0.4 Eos # (Auto) 0.7 H Baso # (Auto) 0.0 Abs Immat Gran (auto) 0.02 Absolute Neuts (auto) 3.5 Absolute Nucleated RBC 0.000 Nucleated RBC % (auto) 0.0 Sodium 139 Potassium 3.8 Chloride 106 Carbon Dioxide 28 Anion Gap 9 L BUN 12 Creatinine 0.88 Estim Creat Clear Calc 146.4 Estimated GFR > 60 Random Glucose 118 H Calcium 9.0 D Magnesium 1.9 Total Bilirubin 0.3 AST 23 ALT 21 Alkaline Phosphatase 58 Total Creatine Kinase 491 H Total Protein 7.4 Albumin 4.0 Urine Color Yellow Urine Appearance Cloudy Urine pH 7.0 Ur Specific [place] >= 1.030 H Urine Protein Trace Urine Glucose (UA) Negative Urine Ketones Trace Urine Blood Negative Urine Nitrite Negative Ur Leukocyte Esterase Negative Urine Opiates Screen Not Detected Ur Buprenorphine Scrn Not Detected Ur Oxycodone Screen Not Detected Urine Methadone Screen Not Detected Urine Fentanyl Screen Not Detected Ur Barbiturates Screen Not Detected Ur Phencyclidine Scrn Not Detected Ur Amphetamines Screen Not Detected U Benzodiazepines Scrn Not Detected Urine Cocaine Screen POSITIVE H U Marijuana (THC) Screen POSITIVE H Ethyl Alcohol < 10 Influenza Type A (PCR) NEGATIVE Influenza Type B (PCR) NEGATIVE RSV RNA Qual (PCR) NEGATIVE SARS-CoV-2 RNA (RT-PCR) NEGATIVE Mental Status Exam Mental Status Exam Patient Appearance: Appropriate (On hospital gowns) Patient Orientation: Person and Situation Level of Consciousness: Awake Patient Behavior: Guarded and Passive Mood Description: Calm Affect Description: Constricted Ability to Follow Directions: Good Speech Pattern: Clear Hallucinations: None Delusions: Paranoid Ideation and Ideas of Reference Thought Process: Distracted Thought Content: positive for Iselin and positive for Poverty of Content Judgement: Fair Medications Allergies Allergies Allergy/AdvReac Type Severity Reaction Status Date / Time shellfish derived Allergy Severe ANAPHYLAXIS Verified 12/05/23 14:31 [SHELLFISH DERIVED] oxycodone [From PERCOCET] AdvReac Intermediate ITCHINESS Verified 12/05/23 14:31 Assessment & Plan Assessment & Plan (1) Mood disorder: Status: Acute Code(s): F39 - Unspecified mood [affective] disorder Plan The patient is an adult male with a past history of schizoaffective disorder bipolar type versus bipolar disorder, chronically mentally ill, enrolled at the [facility] disability case manager in program [employer], who self-referred into the hospital emergency room complaining of blacking out, poor short-term memory and suicidal ideation with a plan to jump off the bridge. He was assessed by crisis and transfer to the psych hold waiting for placement. Plan 1. The patient needs inpatient level of care since he is unable to contract for safety. 2. Start Abilify 5 mg p.o. q.a.m. as per med reconciliation he used to take up to 10 mg daily. 3. Start Remeron 7.5 mg p.o. q.h.s. to target insomnia and depression. 4. The patient is willing to go inpatient level of care but if he refused the Section 12 needs to be filled. 5. Reassessment as demand Total time managing care of this patient today __30__ minutes. Patient educated on: diagnosis and therapeutic strategies Informed Consent: understands
[2023-12-06 17:44] VITALS: RESP 18
--- NOTE | 2023-12-06 17:46 | PC.NURSE ---
Pt refusing vital signs at this time. He reports that he is going to catch pneumonia because of how cold it is here in the pod. This RN offered additional blankets and hot packs. Pt seemed dissatisfied with this RNs offerings but took them
--- NOTE | 2023-12-06 21:58 | PC.NURSE ---
Assumed care of pt at 1845. PT appearing to be sleeping- respirations even and unlabored. TW attempted to medicated pt at 2100. PT yelling at t/w leave me the fuck alone. Im trying to sleep and you all keep waking me up. I'm trying to not get pneumonia and you all keeping waking me the fuck up PT refused night medications. TW provided patient education on medications and compliance. Safety precautions in place. 15 minutes check remain. Plan of care ongoing.
[2023-12-07 05:22] VITALS: BP 139/101; PULSE 71; RESP 17; TEMP 37; O2SAT 99
[2023-12-07] MEDS: ARIPiprazole 5 MG TABLET PO (07:56)
[2023-12-07] MEDS: LORazepam 1 MG TABLET PO (07:56)
[2023-12-07] MEDS: Bictegrav/Emtricit/Tenofov Ala TABLET 1 TAB PO (09:39)
--- NOTE | 2023-12-07 10:18 | PC.NURSE ---
Late entry: Assumed care of patient at 0645, patient agitated this am, angry that his room is cold, stating I am gonna catch pneumonia in this fucking place and yall dont care . This RN offered additional warm blankets, pt states that aint gonna do nothing, I am gonna catch pneumonia anyways . Pt took morning medications without issue but when offered his am Biktarvy he became agitated that this RN did not have sandwiches to go with the medication. this RN attempted to explain that he could make a peanut butter and jelly however, patient became angry and stated nah, I fucking hate that shit, this hospital is fucked up, I wanna go . pt self-redirected. Pt took the medication eventually and asked for a peanut butter and jelly sandwich. Pt then became angry that we could not give him a knife to spread his jelly with. Pt now sitting in his room, watching TV, no apparent distress
--- NOTE | 2023-12-07 12:03 | P.CNPS_ITS ---
History of Present Illness Date of Service: t Chief Complaint: crisis Reason for Consult: REassesment of medications Sources of Information: patient interviewed, chart reviewed and crisis/core team assessment reviewed HPI Narrative: Asked to be seen again. No changes on his mental status, as per nursing no evidence of new symptoms, but he was irritable at night but no need of use of chemical restraining or any other interventions. On interview, he wants to be admitted for furhter management. Agreed to continue with titration of Abilify Past Psychiatric History: The patient is a very poor historian but apparently he has prior psychiatric admissions into the hospital. He is involved with [facility] case managing on ACS program. Medical Evaluation Reviewed: Yes Diagnostics Vital Signs (24Hr): Vital Signs - 24 hr 12/06/23 17:44 12/07/23 05:22 Temperature 98.6 F Pulse Rate 71 Respiratory Rate 18 17 Blood Pressure 139/101 H Pulse Oximetry 99 Oxygen Delivery Method Room Air BMI result Body Mass Index 28.2 Labs 12/05/23 14:43 12/05/23 14:43 Labs: Laboratory Results - last 48 hr 12/05/23 12/05/23 14:43 14:44 WBC 7.5 RBC 4.52 L Hgb 12.6 L Hct 38.7 L MCV 85.6 MCH 27.9 MCHC 32.6 RDW 12.9 Plt Count 263 MPV 9.2 L Immature Gran % (Auto) 0.3 Neut % (Auto) 47.1 Lymph % (Auto) 38.2 [place] % (Auto) 4.9 Eos % (Auto) 9.0 H Baso % (Auto) 0.5 Lymph # (Auto) 2.9 [place] # (Auto) 0.4 Eos # (Auto) 0.7 H Baso # (Auto) 0.0 Abs Immat Gran (auto) 0.02 Absolute Neuts (auto) 3.5 Absolute Nucleated RBC 0.000 Nucleated RBC % (auto) 0.0 Sodium 139 Potassium 3.8 Chloride 106 Carbon Dioxide 28 Anion Gap 9 L BUN 12 Creatinine 0.88 Estim Creat Clear Calc 146.4 Estimated GFR > 60 Random Glucose 118 H Calcium 9.0 D Magnesium 1.9 Total Bilirubin 0.3 AST 23 ALT 21 Alkaline Phosphatase 58 Total Creatine Kinase 491 H Total Protein 7.4 Albumin 4.0 Urine Color Yellow Urine Appearance Cloudy Urine pH 7.0 Ur Specific [place] >= 1.030 H Urine Protein Trace Urine Glucose (UA) Negative Urine Ketones Trace Urine Blood Negative Urine Nitrite Negative Ur Leukocyte Esterase Negative Urine Opiates Screen Not Detected Ur Buprenorphine Scrn Not Detected Ur Oxycodone Screen Not Detected Urine Methadone Screen Not Detected Urine Fentanyl Screen Not Detected Ur Barbiturates Screen Not Detected Ur Phencyclidine Scrn Not Detected Ur Amphetamines Screen Not Detected U Benzodiazepines Scrn Not Detected Urine Cocaine Screen POSITIVE H U Marijuana (THC) Screen POSITIVE H Ethyl Alcohol < 10 Influenza Type A (PCR) NEGATIVE Influenza Type B (PCR) NEGATIVE RSV RNA Qual (PCR) NEGATIVE SARS-CoV-2 RNA (RT-PCR) NEGATIVE Mental Status Exam Mental Status Exam Patient Appearance: Appropriate Patient Orientation: Person, Place and Situation Level of Consciousness: Awake Patient Behavior: Appropriate Mood Description: Calm Affect Description: Constricted Ability to Follow Directions: Fair Speech Pattern: Clear Hallucinations: None Delusions: Paranoid Ideation Thought Process: Evasive Thought Content: positive for Goal Oriented Judgement: Fair Medications Medications Current Medications Aripiprazole (Aripiprazole 5 Mg Tablet) 5 mg PO DAILY [facility] Last Admin: 12/07/23 07:56 Dose: 5 mg Bictegravir/Emtricitabine/Tenofovir (Bictegrav/Emtricit/Tenofov Ala Tablet) 1 tab PO DAILY ARIELA Last Admin: 12/07/23 09:39 Dose: 1 tab Mirtazapine (Mirtazapine 7.5 Mg Tablet) 7.5 mg PO BEDTIME ARIELA Last Admin: 12/06/23 21:27 Dose: Not Given Allergies Allergies Allergy/AdvReac Type Severity Reaction Status Date / Time shellfish derived Allergy Severe ANAPHYLAXIS Verified 12/05/23 14:31 [SHELLFISH DERIVED] oxycodone [From PERCOCET] AdvReac Intermediate ITCHINESS Verified 12/05/23 14:31 Assessment & Plan Assessment & Plan (1) Mood disorder: Status: Acute Code(s): F39 - Unspecified mood [affective] disorder Plan Reassessed at bedside Plan 1. Keep Remeron 7.5 mg po qhs 2. Increase Abilify up to 10 mg tomorrow. 3. IPLOC. 4. Reassessment as demand Total time managing care of this patient today __30__ minutes. Informed Consent: understands
[2023-12-07] MEDS: hydrOXYzine HCL 50 MG TABLET PO (14:01)
--- NOTE | 2023-12-07 14:45 | PC.NURSE ---
pt continues to remain irritable, angry that it is cold in the pod and that he cannot shave. He is requesting to leave to be direct admitted to [facility] . This Rn educated patient that he cannot be direct admitted to an inpatient facility by walking it. Pt expresses frustrations regarding stay which this RN validated patient's feelings. Pt continues to moan and occasionally make remarks under his breath about being upset.
[2023-12-07 14:48] VITALS: RESP 14
--- NOTE | 2023-12-07 19:46 | PC.NURSE ---
patient appears to remain at rest presently respirations are even and unlabored patient appears in no distress.
--- NOTE | 2023-12-07 21:12 | PC.NURSE ---
t/w knocked on door antered, called clients name introduced self client responded looking away i dont apprecaite being woken up thanked client turned out light closed door.
[2023-12-08 06:00] VITALS: BP 141/107; PULSE 91; RESP 16; TEMP 36.8; O2SAT 95
--- NOTE | 2023-12-08 08:40 | PHA.MEDREC ---
Pharmacy Consult ? Medication Reconciliation Pharmacy has reviewed the medication reconciliation. RN had done med rec but omitted some claims. Went down to speak to patient who was able to tell me he is on hydroxyzine and lithium, added these to the med rec.
[2023-12-08] MEDS: ARIPiprazole 10 MG TABLET PO (08:42)
[2023-12-08] MEDS: LORazepam 1 MG TABLET PO (08:49)
[2023-12-08] MEDS: Bictegrav/Emtricit/Tenofov Ala TABLET 1 TAB PO (10:48)
--- NOTE | 2023-12-08 11:00 | MHC.CARE ---
At patient's request CARE Team reached out to [facility], to provide update that patient will be admitted to this hospital today. CM stated that they have been trying to reach patient for two months. Zay Teague email: for meetings and discharge planning Notification of admission form faxed to [facility]
[2023-12-08] MEDS: Magnesium Hydrox/Alum Hydrox 30 ML ORAL.SUSP PO (11:36)
[2023-12-08] MEDS: hydrOXYzine HCL 50 MG TABLET PO (11:48)
--- NOTE | 2023-12-08 14:45 | PC.NURSE ---
belongings obtained/provided to pt prior to transferring to inpatient unit. pt transported by [employer].
[2023-12-08 15:25] VITALS: BMI 27.6
[2023-12-08] MEDS: hydrOXYzine HCL 25 MG TABLET PO (16:00)
--- NOTE | 2023-12-08 16:34 | PC.ADMIT ---
Nursing admission note: 38 year old male DX: Unspecified Depressive Disorder, Cocaine use disorder Unspecified. Referred for treatment by CARE team. Signed Conditional Voluntary for admission. Patient presented to [facility] via EMS following community assessment. Per crisis evaluation patient was seen by [facility] crisis and sent to [facility] for medical clearance as patient reported having daily black outs and waking up in peoples' homes who he does not know and reportedly does not remember who the people are. Patient engaged easily. A+O x4. Reports mood is depressed and anxious. Reports SI prior to admission, I was going to jump off the bridge . Reports went to the bridge, was going to jump off in suicide attempt however there is a part of me that wants to live . Denies HI. Intermittent eye contact, blunted affect. Reports feeling safe on unit and will inform staff if feeling suicidal. Thoughts are linear and organized. Reports periods of feeling confused. Endorses racing thoughts.Denies perceptual disturbances, no overt psychosis or expressed delusions. Denies A/V hallucinations. Patient is soft spoken, normal rate and prosody. Reports poor sleep, difficulty falling and maintaining sleep, reports night terrors . Denies appetite disturbances. Reports recent stressors include homelessness and loss of foster mother in March. Denies legal entanglements. Denies substance use although TOX screen positive for cocaine. Allergy to shellfish derived, Oxycodone.No acute medical problems.Patient oriented to unit, placed on unit safety checks. See crisis evaluation, nursing assessment for further details.
[2023-12-08 20:00] VITALS: RESP 16
[2023-12-09 08:00] VITALS: BP 146/71; PULSE 114; RESP 16; TEMP 36.4; O2SAT 98
[2023-12-09 08:18] LABS: Alanine Aminotransferase 34 U/L (0-40); Albumin Level 4.3 g/dL (3.5-5.0); Alkaline Phosphatase 62 U/L (39-117); Anion Gap 11 (12-20); Aspartate Amino Transferase 22 U/L (5-37); Bilirubin Total 0.2 mg/dL (0.0-1.0); Blood Urea Nitrogen 11 mg/dL (9-16); Calcium 9.7 mg/dL (8.4-10.2); Carbon Dioxide 25 mmol/L (22-29); Chloride 103 mmol/L (96-108); Cholesterol 152 mg/dL (<200); Creatinine Clr Calc Pharmacy 118.7; Estimated Glomerular Filt Rate > 60; Glucose Fasting 106 mg/dL (60-99); HDL Cholesterol 51 mg/dL (>40); LDL Cholesterol Calculated 81 mg/dL (<100); Potassium 4.4 mmol/L (3.3-5.1); Sodium 135 mmol/L (135-145); Total Protein 8.4 g/dL (6.5-8.0); Triglycerides 104 mg/dL (<150)
[2023-12-09] MEDS: Lithium Carbonate 300 MG CAPSULE PO (08:46)
[2023-12-09] MEDS: ARIPiprazole 10 MG TABLET PO (08:46)
[2023-12-09] MEDS: Bictegrav/Emtricit/Tenofov Ala TABLET 1 TAB PO (08:46)
--- NOTE | 2023-12-09 09:23 | P.HPPS_ITS ---
HPI Date of Service: 12/09/23 Chief Complaint: crisis Sources of Information: patient interviewed, chart reviewed and crisis/core team assessment reviewed HPI Subjective Notes: Solitario Warning and Conditional Voluntary Narrative: Patient is a 38-year-old male with history of MDD, PTSD, opiate use disorder and cocaine use disorder who presented to [facility] via EMS after being seen in the community by [facility] crisis reporting blackouts and suicidal ideation to jump off a bridge secondary to increased depression. Per crisis report, patient was sent to [facility] for medical clearance due to reports of blackouts. Patient then reported suicidal ideation with plan to jump from a bridge. Patient denied any substance use however tested positive for cocaine and marijuana. Per [facility], patient was recently residing at a prison but was recently discharged from the program for reasons unknown to him. Reported poor sleep and poor appetite. Denied AH/VH/HI. Patient reports having a team through [facility] ACCS. During admission assessment, patient presents alert and oriented x3. Calm and cooperative. Patient reports feeling depressed ; patient stated, I came to the hospital because I need help getting into a program for sobriety. I have not been taking my meds for 3-4 months and I'll be better when I'm on my lithium. My assistant professor of history found me an apartment that will not be ready till the middle of December and I want to be ready and clean for it . Patient reports he does not have any outpatient psychiatric providers and has been receiving his medications from his PCP. However, he has not been medication compliant for the past 3-4 months per patient. He reports using cocaine, crack, heroin, fentanyl 3 to 4 times a week. U tox positive for cocaine and marijuana. Patient reports history of being on methadone but stated, I detoxed myself off of it a month ago because I did not want to be on a liquid leash . Patient denies history of SIB/SA. Patient denies SI/HI/VH/AH. Past Psychiatric History: The patient is a very poor historian but apparently he has prior psychiatric admissions into the hospital. He is involved with [facility] case managing on [facility] program. Medical Evaluation Reviewed: Yes [facility] Family History: Unknown Social History: Homeless, single, no kids, disability, associates degree. Substance History: Patient reports using cocaine, crack, heroin, fentanyl multiple times a week. Trauma History: Yes Diagnostics Vital Signs (24Hr): Vital Signs - 24 hr 12/08/23 20:00 12/09/23 08:00 Temperature 97.5 F Pulse Rate 114 H Respiratory Rate 16 16 Blood Pressure 146/71 H Pulse Oximetry 98 Oxygen Delivery Method Room Air BMI result Body Mass Index 27.6 Labs 12/05/23 14:43 12/09/23 07:40 Labs: Laboratory Results - last 48 hr 12/09/23 07:40 Sodium 135 Potassium 4.4 Chloride 103 Carbon Dioxide 25 Anion Gap 11 L BUN 11 Creatinine 1.00 Estim Creat Clear Calc 118.7 Estimated GFR > 60 Fasting Glucose 106 H Calcium 9.7 D Total Bilirubin 0.2 AST 22 ALT 34 Alkaline Phosphatase 62 Total Protein 8.4 H Albumin 4.3 Triglycerides 104 Cholesterol 152 LDL Cholesterol, Calc 81 HDL Cholesterol 51 Meds/Allergies Meds Home Medications ?Medication ?Instructions ?Recorded ?Confirmed ?Type bictegravir 50 mg-emtricitabine 1 tab PO DAILY 12/06/23 12/06/23 History 200 mg-tenofovir alafenam 25 mg tablet (Biktarvy) hydroxyzine HCl 25 mg tablet 25 mg PO Q6H PRN Anxiety 12/08/23 12/08/23 History lithium carbonate 300 mg tablet 300 mg PO BID 12/08/23 12/08/23 History Allergies Allergies Allergy/AdvReac Type Severity Reaction Status Date / Time shellfish derived Allergy Severe ANAPHYLAXIS Verified 12/05/23 14:31 [SHELLFISH DERIVED] oxycodone [From PERCOCET] AdvReac Intermediate ITCHINESS Verified 12/05/23 14:31 Mental Status Exam Mental Status Exam Narrative: Pt is alert and oriented; behavior is cooperative and calm; dressed in casual attire; mood is described as depressed ; eye contact appropriate; Speech is normal rate, volume and not pressured; thought process is organized and goal directed; Thought content is on tx; otherwise pertinent to relevant topics and without any delusional content, paranoid ideations or grandiosity; denies SI/HI/AH/VH. Assessment & Plan Assessment & Plan (1) Mood disorder: Status: Acute Code(s): F39 - Unspecified mood [affective] disorder (2) PTSD (post-traumatic stress disorder): Status: Acute Code(s): F43.10 - Post-traumatic stress disorder, unspecified (3) Opioid use disorder: Status: Acute Code(s): F11.90 - Opioid use, unspecified, uncomplicated (4) Cocaine use disorder: Status: Acute Code(s): F14.10 - Cocaine abuse, uncomplicated Plan Patient is a 38-year-old male with history of MDD, PTSD, opiate use disorder and cocaine use disorder who presented to [facility] via EMS after being seen in the community by [facility] crisis reporting blackouts and suicidal ideation to jump off a bridge secondary to increased depression. Plan: CV 15 minute safety checks Continue home medications Obtain collateral Encourage groups Referral to outpatient psychiatric providers Discharge planning Patient educated on: diagnosis, medication risk/benefits, substance abuse and therapeutic strategies Informed Consent: understands Reason for continued inpatient stay Substantial Risk for: med/psych decompensation Statement Statement: I have reviewed the history and physical and performed a pertinent examination on my patient. No changes have occurred unless specified. If the History and Physical was not performed prior to admission, the Hospitalist's service will be consulted for completing the admission physical. Time Spent With Patient Time: Total time managing care of this patient today _60___ minutes.
[2023-12-09] MEDS: Magnesium Hydrox/Alum Hydrox 30 ML ORAL.SUSP PO (17:45)
[2023-12-09] MEDS: traZODone HCL 50 MG TABLET PO (22:15)
[2023-12-09] MEDS: hydrOXYzine HCL 25 MG TABLET PO (22:15)
--- NOTE | 2023-12-10 06:01 | PC.NURSE ---
Patient c/o nausea, had small amount of liquid emesis at this time, 0600. He declined any medication and chose to drink hot tea. He also c/o dizziness. Vitals: temp 97.4 left arm sitting Bp 134/90 HR 113 RR 16 O2 sat on room air 97%.
[2023-12-10 06:10] VITALS: BP 134/90; PULSE 113; RESP 16; TEMP 36.3; O2SAT 97
[2023-12-10] MEDS: Milk of Magnesia 30 ML ORAL.SUSP PO (08:34)
[2023-12-10] MEDS: hydrOXYzine HCL 25 MG TABLET PO (08:34)
[2023-12-10] MEDS: Ondansetron ODT 8 MG TAB.RAPDIS TRANSLINGU (09:10)
--- NOTE | 2023-12-10 09:40 | HO.PSYCHPN ---
Subjective Subjective Reason For Visit: crisis Diagnostics Vital Signs (24Hr): Vital Signs - 24 hr 12/10/23 06:10 Temperature 97.4 F Pulse Rate 113 H Respiratory Rate 16 Blood Pressure 134/90 H Pulse Oximetry 97 Oxygen Delivery Method Room Air BMI result Body Mass Index 27.6 Labs 12/05/23 14:43 12/09/23 07:40 Labs: Laboratory Results - last 48 hr 12/09/23 07:40 Sodium 135 Potassium 4.4 Chloride 103 Carbon Dioxide 25 Anion Gap 11 L BUN 11 Creatinine 1.00 Estim Creat Clear Calc 118.7 Estimated GFR > 60 Fasting Glucose 106 H Calcium 9.7 D Total Bilirubin 0.2 AST 22 ALT 34 Alkaline Phosphatase 62 Total Protein 8.4 H Albumin 4.3 Triglycerides 104 Cholesterol 152 LDL Cholesterol, Calc 81 HDL Cholesterol 51 Medications Medications Current Medications Acetaminophen (Acetaminophen 325 Mg Tablet) 650 mg PO Q6H PRN PRN Reason: Headache/Pain Mild Scale (1-3) Al Hydroxide/Mg Hydroxide (Magnesium Hydrox/Alum Hydrox 30 Ml Oral.Susp) 30 ml PO Q6H PRN PRN Reason: Heartburn/Nausea Last Admin: 12/09/23 17:45 Dose: 30 ml Aripiprazole (Aripiprazole 10 Mg Tablet) 10 mg PO DAILY [facility] Last Admin: 12/09/23 08:46 Dose: 10 mg Bictegravir/Emtricitabine/Tenofovir (Bictegrav/Emtricit/Tenofov Ala Tablet) 1 tab PO DAILY [facility] Last Admin: 12/09/23 08:46 Dose: 1 tab Hydroxyzine HCl (Hydroxyzine Hcl 25 Mg Tablet) 25 mg PO Q6H PRN PRN Reason: Anxiety Last Admin: 12/10/23 08:34 Dose: 25 mg [place] Carbonate ([place] Carbonate 300 Mg Capsule) 300 mg PO BID [facility] Last Admin: 12/09/23 21:27 Dose: Not Given Magnesium Hydroxide (Milk Of Magnesia 30 Ml Oral.Susp) 30 ml PO DAILY PRN PRN Reason: Constipation Last Admin: 12/10/23 08:34 Dose: 30 ml Mirtazapine (Mirtazapine 7.5 Mg Tablet) 7.5 mg PO BEDTIME [facility] Last Admin: 12/09/23 21:27 Dose: Not Given Nicotine Polacrilex (Nicotine Polacrilex 2 Mg Gum) 4 mg BUCCAL Q2H PRN PRN Reason: Nicotine Cravings Ondansetron HCl (Ondansetron Odt 8 Mg Tab.Rapdis) 8 mg TRANSLINGU Q12H PRN PRN Reason: Nausea and Vomiting Last Admin: 12/10/23 09:10 Dose: 8 mg Trazodone HCl (Trazodone Hcl 50 Mg Tablet) 50 mg PO BEDTIME MRX1 PRN PRN Reason: Insomnia Last Admin: 12/09/23 22:15 Dose: 50 mg Allergies Allergies Allergy/AdvReac Type Severity Reaction Status Date / Time shellfish derived Allergy Severe ANAPHYLAXIS Verified 12/05/23 14:31 [SHELLFISH DERIVED] oxycodone [From PERCOCET] AdvReac Intermediate ITCHINESS Verified 12/05/23 14:31 Assessment & Plan Assessment & Plan (1) Mood disorder: Status: Acute Code(s): F39 - Unspecified mood [affective] disorder (2) PTSD (post-traumatic stress disorder): Status: Acute Code(s): F43.10 - Post-traumatic stress disorder, unspecified (3) Opioid use disorder: Status: Acute Code(s): F11.90 - Opioid use, unspecified, uncomplicated (4) Cocaine use disorder: Status: Acute Code(s): F14.10 - Cocaine abuse, uncomplicated Plan Patient is a 38-year-old male with history of MDD, PTSD, opiate use disorder and cocaine use disorder who presented to [facility] via EMS after being seen in the community by [facility] crisis reporting blackouts and suicidal ideation to jump off a bridge secondary to increased depression. Plan: CV 15 minute safety checks Continue home medications Obtain collateral Encourage groups Referral to outpatient psychiatric providers Discharge planning Time Spent With Patient Time: Total time managing care of this patient today ____ minutes.
[2023-12-10] MEDS: ARIPiprazole 10 MG TABLET PO (10:07)
[2023-12-10] MEDS: Lithium Carbonate 300 MG CAPSULE PO (10:07)
[2023-12-10] MEDS: Bictegrav/Emtricit/Tenofov Ala TABLET 1 TAB PO (10:08)
--- NOTE | 2023-12-10 11:23 | P.DS_ITS ---
DS: Providers Provider Date of Service: 12/10/23 Date of admission: 12/08/23 12:17 Date of discharge: 12/10/23 Primary care physician: Juan Costello MD Admitting clinician: Abigail Cheung Attending physician on admission: Miguel Barfield Attending physician on discharge: Miguel Barfield Discharging clinician: Abigail Cehung DS: Diagnosis Discharge Diagnosis (1) Mood disorder: Status: Acute (2) PTSD (post-traumatic stress disorder): Status: Acute (3) Opioid use disorder: Status: Acute (4) Cocaine use disorder: Status: Acute DS: Medications Discharge Medications Home Medications: Home Medications ?Medication ?Instructions ?Recorded ?Confirmed bictegravir 50 mg-emtricitabine 1 tab PO DAILY 12/06/23 12/06/23 200 mg-tenofovir alafenam 25 mg tablet (Biktarvy) hydroxyzine HCl 25 mg tablet 25 mg PO Q6H PRN Anxiety 12/08/23 12/08/23 lithium carbonate 300 mg tablet 300 mg PO BID 12/08/23 12/08/23 Mental Status Exam Mental Status Exam Narrative: Pt is alert and oriented; behavior is cooperative and calm; dressed in casual attire; mood is described as good ; eye contact appropriate; Speech is normal rate, volume and not pressured; thought process is organized and goal directed; Thought content is on getting an apartment; otherwise pertinent to relevant topics and without any delusional content, paranoid ideations or grandiosity; denies SI/HI/VH/AH. Data Data Completed and Pending Completed studies during hospitalization [Text1]: 12/05/23 12/05/23 12/09/23 14:43 14:44 07:40 WBC 7.5 RBC 4.52 L Hgb 12.6 L Hct 38.7 L MCV 85.6 MCH 27.9 MCHC 32.6 RDW 12.9 Plt Count 263 MPV 9.2 L Immature Gran % (Auto) 0.3 Neut % (Auto) 47.1 Lymph % (Auto) 38.2 Hendricks % (Auto) 4.9 Eos % (Auto) 9.0 H Baso % (Auto) 0.5 Lymph # (Auto) 2.9 Hendricks # (Auto) 0.4 Eos # (Auto) 0.7 H Baso # (Auto) 0.0 Abs Immat Gran (auto) 0.02 Absolute Neuts (auto) 3.5 Absolute Nucleated RBC 0.000 Nucleated RBC % (auto) 0.0 Sodium 139 135 Potassium 3.8 4.4 Chloride 106 103 Carbon Dioxide 28 25 Anion Gap 9 L 11 L BUN 12 11 Creatinine 0.88 1.00 Estim Creat Clear Calc 146.4 118.7 Estimated GFR > 60 > 60 Random Glucose 118 H Fasting Glucose 106 H Calcium 9.0 D 9.7 D Magnesium 1.9 Total Bilirubin 0.3 0.2 AST 23 22 ALT 21 34 Alkaline Phosphatase 58 62 Total Creatine Kinase 491 H Total Protein 7.4 8.4 H Albumin 4.0 4.3 Triglycerides 104 Cholesterol 152 LDL Cholesterol, Calc 81 HDL Cholesterol 51 Urine Color Yellow Urine Appearance Cloudy Urine pH 7.0 Ur Specific Clarence >= 1.030 H Urine Protein Trace Urine Glucose (UA) Negative Urine Ketones Trace Urine Blood Negative Urine Nitrite Negative Ur Leukocyte Esterase Negative Urine Opiates Screen Not Detected Ur Buprenorphine Scrn Not Detected Ur Oxycodone Screen Not Detected Urine Methadone Screen Not Detected Urine Fentanyl Screen Not Detected Ur Barbiturates Screen Not Detected Ur Phencyclidine Scrn Not Detected Ur Amphetamines Screen Not Detected U Benzodiazepines Scrn Not Detected Urine Cocaine Screen POSITIVE H U Marijuana (THC) Screen POSITIVE H Ethyl Alcohol < 10 Influenza Type A (PCR) NEGATIVE Influenza Type B (PCR) NEGATIVE RSV RNA Qual (PCR) NEGATIVE SARS-CoV-2 RNA (RT-PCR) NEGATIVE DS: Summary Hospital Course Hospital Course: Patient is a 38-year-old male with history of MDD, PTSD, opiate use disorder and cocaine use disorder who presented to [facility] via EMS after being seen in the community by [facility] crisis reporting blackouts and suicidal ideation to jump off a bridge secondary to increased depression. Per crisis report, patient was sent to [facility] for medical clearance due to reports of blackouts. Patient then reported suicidal ideation with plan to jump from a bridge. Patient denied any substance use however tested positive for cocaine and marijuana. Per [facility], patient was recently residing at a custodial but was recently discharged from the program for reasons unknown to him. Reported poor sleep and poor appetite. Denied AH/VH/HI. Patient reports having a team through [facility] ACC[facility]. During admission assessment, patient presents alert and oriented x3. Calm and cooperative. Patient reports feeling depressed ; patient stated, I came to the hospital because I need help getting into a program for sobriety. I have not been taking my meds for 3-4 months and I'll be better when I'm on my lithium. My assistant superintendent found me an apartment that will not be ready till the middle of December and I want to be ready and clean for it . Patient reports he does not have any outpatient psychiatric providers and has been receiving his medications from his PCP. However, he has not been medication compliant for the past 3-4 months per patient. He reports using cocaine, crack, heroin, fentanyl 3 to 4 times a week. U tox positive for cocaine and marijuana. Patient reports history of being on methadone but stated, I detoxed myself off of it a month ago because I did not want to be on a liquid leash . Patient denies history of SIB/SA. Patient denies SI/HI/VH/AH. Plan: CV 15 minute safety checks Continue home medications Obtain collateral Encourage groups Referral to outpatient psychiatric providers Discharge planning Active on unit. social with peers. Patient met with his ACCS team and vp digital marketing social media and crm, Becky. Pt reports feeling good and ready to leave ; pt stated, they told me I have an apartment that will be ready for me on December 18 . Pt reports he refused his medications last night d/t already sleeping and not wanting to be woken up . Pt denies SI/HI/VH/AH. Pt reports he plans on following up with his outpatient providers. Time spent discussing smoking cessation with patient: 3 to 10 minutes Status at Discharge Cognitive/behavioral status at discharge: Patient was interviewed prior to discharge and found to be fully oriented and without SI or HI. Patient has insight and demonstrates good judgment in terms of wanting to pursue treatment. Patient has a safety plan that includes presenting to the closest ER or calling 911 if feeling unsafe. Functional status at discharge: independent ambulation Overall status at discharge: patient is back to baseline Time Spent with Patient Time attestation: Total time managing care of this patient today _30___ minutes. Time spent: Less than 30 minutes Discharge Plan Discharge Anticipated Discharge Date/Time: 12/10/23 11:45 Patient Disposition: Residential Discharge Diagnosis: Mood d/o, PTSD, cocaine use d/o, opiate use d/o Referrals: Anatoliy Oliver (therapist [facility]) [Other] - 1 Week (Follow up with your therapist upon discharge for an appointment.) Juan Costello MD [Primary Care Provider] - 1 Week Discharge Medications: New aripiprazole 10 mg Tablet 10 mg PO DAILY 30 Days Qty: 30 0RF mirtazapine 7.5 mg Tablet 7.5 mg PO BEDTIME 30 Days Qty: 30 0RF Continued Biktarvy 50-200-25 mg tablet 1 tab PO DAILY lithium carbonate 300 mg tablet 300 mg PO BID 30 Days Qty: 60 0RF Changed hydroxyzine HCl 25 mg tablet 25 mg PO BID PRN (Reason: Anxiety) 30 Days Qty: 60 0RF Discharge Orders: Discharge Order (Routine); Ordered 12/10/23 Ordered By: Abigail Cheung Diet: Regular diet Activity on Discharge: As tolerated Stand Alone Forms: Patient Portal Discharge page Print Language: Tamazight Care Plan Goals: Maintain mood and safe behaviors Take medications as prescribed Continue to pursue sobriety Practice coping skills Continue with outpatient providers and reach out to them as needed Health Concerns: Mood stability and behaviors Sobriety Plan of Treatment: Follow up with your PCP, psychiatric provider and other outpatient providers regarding above concerns Take medications as prescribed Assessment: Patient was interviewed prior to discharge and found to be fully oriented and without SI or HI. Patient has insight and demonstrates good judgment in terms of wanting to pursue treatment. Patient has a safety plan that includes presenting to the closest ER or calling 911 if feeling unsafe.
[2023-12-10] MEDS: Naloxone HCl Nasal TAKE HOME 4 MG SPRAY 8 MG NOSTRILALT (12:10)
== END 2023-12-10 12:15 | disposition home or self-care (01) | DRG 885 ==
LOC: HO.ED 12-08 12:59 → HO.PADLT16 12-08 13:54
PROVIDERS: Physician Assistant; Registered Nurse Emergency; Admitting Provider Registered Nurse; Emergency Provider Internal Medicine; PCP Internal Medicine; Responsible Provider Registered Nurse; Visit Provider Psychiatry & Neurology Psychiatry
DX: F39 Unspecified mood [affective] disorder (principal); R45.851 Suicidal ideations; Z59.02 Unsheltered homelessness; F11.90 Opioid use, unspecified, uncomplicated; F43.10 Post-traumatic stress disorder, unspecified; F14.10 Cocaine abuse, uncomplicated; Z20.822 Contact with and (suspected) exposure to COVID-19; Z87.820 Personal history of traumatic brain injury; Z79.899 Other long term (current) drug therapy
CPT/HCPCS: 0241U; 36415; 80053; 80061; 80307; 81003; 82550; 83735; 85025; 93005; 99285; S9485

== ENCOUNTER → 2023-12-05 14:28 | Outpatient (BNV) | payer OTHER, SELFPAY | PROVIDERS: Emergency Provider Internal Medicine; PCP Internal Medicine; Visit Provider Internal Medicine | DX: R55 Syncope and collapse (principal) | CPT/HCPCS: 93010 ==

== ENCOUNTER → 2023-12-05 15:07 | Outpatient (BNV) | payer OTHER, SELFPAY | PROVIDERS: Emergency Provider Internal Medicine; PCP Internal Medicine; Visit Provider Psychiatry & Neurology Psychiatry | DX: F39 Unspecified mood [affective] disorder (principal) | CPT/HCPCS: 90792; 99232; 99238 ==